=== PATIENT | male | born 1960 | race African-American/Black ===

== ENCOUNTER 2017-08-12 11:57 | Observation (INO) | payer BC, OTHER ==
[2017-08-12] MEDS ORDERED: chlorproMAZINE HCL 25 MG/1 ML AMP IM ONE ×2 (13:03→16:48)
--- NOTE | 2017-08-12 13:05 | PDOC ---
History of Present Illness - General History Source: Patient Exam Limitations: No Limitations - History of Present Illness Initial Comments: 08/12/17 13:16 The patient is a 56 year old male with past medical history of hypertension who presents to the ED with three days of hiccups. The patient states his hiccups have persisted despite all his efforts to stop them. He reports going to Urgent Care earlier today for his symptoms where he got an EKG done which was normal but he was sent to the ED for further evaluation and blood work. The patient denies any abdominal pain, nausea, vomiting, or diarrhea. He denies any chest pain, palpitations, diaphoresis or shortness of breath. He denies any fevers or chills. <Jackie Calles - Last Filed: 08/12/17 15:49> <Mona Louise - Last Filed: 08/12/17 19:03> - General Chief Complaint: Pain Stated Complaint: HIC CUPS Time Seen by Provider: 08/12/17 12:51 Past History <Jackie Calles - Last Filed: 08/12/17 15:49> - Past Medical History Anemia: No Asthma: No Cancer: No Cardiac Disorders: No CVA: No COPD: No CHF: No Dementia: No Diabetes: No GI Disorders: No Disorders: No HTN: Yes Hypercholesterolemia: No Liver Disease: No Seizures: No Thyroid Disease: No - Surgical History Abdominal Surgery: No Appendectomy: Yes Cardiac Surgery: No Cholecystectomy: No Lung Surgery: No Neurologic Surgery: No Orthopedic Surgery: Yes (RIGHT KNEE ARTHROSCOPY X 2) - Immunization History Immunization Up to Date: No - Suicide/Smoking/Psychosocial Hx Smoking History: Current some day smoker Have you smoked in the past 12 months: Yes Number of Cigarettes Smoked Daily: 0 If you are a former smoker, when did you quit?: 1 Cigars Per Day: 1 Information on smoking cessation initiated: No Hx Alcohol Use: No Drug/Substance Use Hx: No Substance Use Type: None Hx Substance Use Treatment: No <Mona Louise - Last Filed: 08/12/17 19:03> - Past Medical History Allergies/Adverse Reactions: Allergies Allergy/AdvReac Type Severity Reaction Status Date / Time Penicillins Allergy Severe Hives Verified 08/12/17 12:03 Home Medications: Ambulatory Orders Amlodipine Besylate [Norvasc -] 10 mg PO DAILY 03/07/16 Review of Systems - Review of Systems Able to Perform ROS?: Yes Comments:: 08/12/17 13:16 GENERAL/CONSTITUTIONAL: No fever or chills. No weakness. HEAD, EYES, EARS, NOSE AND THROAT: No change in vision. No ear pain or discharge. No sore throat. CARDIOVASCULAR: No chest pain or shortness of breath. RESPIRATORY: No cough, wheezing, or hemoptysis. GASTROINTESTINAL: Present: hiccups No nausea, vomiting, diarrhea or constipation. GENITOURINARY: No dysuria, frequency, or change in urination. MUSCULOSKELETAL: No joint or muscle swelling or pain. No neck or back pain. SKIN: No rash NEUROLOGIC: No headache, vertigo, loss of consciousness, or change in strength/ sensation. ENDOCRINE: No increased thirst. No abnormal weight change. HEMATOLOGIC/LYMPHATIC: No anemia, easy bleeding, or history of blood clots. ALLERGIC/IMMUNOLOGIC: No hives or skin allergy. All Other Systems: Reviewed and Negative <[email or web address] - Last Filed: 08/12/17 15:49> *Physical Exam - Vital Signs Last Vital Signs Temp Pulse Resp BP Pulse Ox 98.5 F 74 18 148/85 98 08/12/17 12:03 08/12/17 12:03 08/12/17 12:03 08/12/17 12:03 08/12/17 12:03 <Jackie Calles - Last Filed: 08/12/17 15:49> - Vital Signs Last Vital Signs Temp Pulse Resp BP Pulse Ox 98.5 F 74 18 148/85 98 08/12/17 12:03 08/12/17 12:03 08/12/17 12:03 08/12/17 12:03 08/12/17 12:03 - Physical Exam Comments: GENERAL: Awake, alert, and fully oriented, in no acute distress. Intermittently with hiccups. HEAD: No signs of trauma EYES: PERRLA, EOMI, sclera anicteric, conjunctiva clear ENT: Auricles normal inspection, hearing grossly normal, nares patent, oropharynx clear without exudates. Moist mucosa NECK: Normal ROM, supple, no lymphadenopathy, JVD, or masses LUNGS: Breath sounds equal, clear to auscultation bilaterally. No wheezes, and no crackles HEART: Regular rate and rhythm, normal S1 and S2, no murmurs, rubs or gallops ABDOMEN: Soft, nontender, normoactive bowel sounds. No guarding, no rebound. No masses EXTREMITIES: Normal range of motion, no edema. No clubbing or cyanosis. No cords, erythema, or tenderness NEUROLOGICAL: Cranial nerves II through XII grossly intact. Normal speech, normal gait SKIN: Warm, Dry, normal turgor, no rashes or lesions noted. <Mona Louise - Last Filed: 08/12/17 19:03> ED Treatment Course - LABORATORY CBC & Chemistry Diagram: 08/12/17 13:45 08/12/17 13:45 <Jackie Calles - Last Filed: 08/12/17 15:49> - LABORATORY CBC & Chemistry Diagram: 08/12/17 13:45 08/12/17 13:45 <Mona Louise - Last Filed: 08/12/17 19:03> Medical Decision Making - Medical Decision Making 08/12/17 15:49 Non-contrast Abdominal CT scan as reviewed by Dr. Gupta reports unremarkable pancreas. Small simple cyst on left renal upper pole and large simple cyst in the right renal lower pole. Diverticulosis coli without evidence of acute diverticulitis. <Jackie Calles - Last Filed: 08/12/17 15:49> - Medical Decision Making 08/12/17 15:43 Called to bedside, patient was in holding area, stood up and suddenly felt weak , fell and hit his head. +LOC. HE appears pale at present. DDx includes poss orthostatic hypotension from thorazine, vasovagal syncope, ACS. 08/12/17 16:50 Reassessed patient. We discussed what happened earlier, and now he states that he did not eat anything since yesterday 7pm. His just brought him a sandwich and he appears a bit better. Orthostatics show stable BP, with an increase in HR with standing. Will plan for second CE at 6 hrs, IV fluids. He is having hiccups again, will give second dose of thorazine. 08/12/17 19:02 Pt endorsed to incoming physician. Awaiting repeat CE. If wnl, DC home. <Mona Louise - Last Filed: 08/12/17 19:03> *DC/Admit/Observation/Transfer - Attestations Scribe Attestion: 08/12/17 13:17 Documentation prepared by Jackie Calles, acting as medical assembly for Mona Louise MD. <Jackie Calles - Last Filed: 08/12/17 15:49> <Mona Louise - Last Filed: 08/12/17 19:03> Diagnosis at time of Disposition: Hiccup Syncope Qualifiers: Syncope type: unspecified Qualified Code(s): R55 - Syncope and collapse
[2017-08-12 13:56] LABS: BASO % 0.9 % (0-2.0); EOS % 0.9 % (0-4.5); HEMATOCRIT 44.9 % (35.4-49); HEMOGLOBIN 14.4 GM/dL (11.7-16.9); LYMPH % 21.9 % (8-40); MCH 26.3 pg (25.7-33.7); MEAN CELL VOLUME 82.3 fl (80-96); MONO % 9.8 % (3.8-10.2); NEUT % 66.5 % (42.8-82.8); PLATELET COUNT 211 K/MM3 (134-434); RBC 5.46 M/mm3 (4.00-5.60); RDW 15.5 % (11.9-15.9); WHITE BLOOD COUNT 5.1 K/mm3 (4.0-10.0)
[2017-08-12 14:09] LABS: INR 1.1 (0.82-1.09); PROTHROMBIN TIME (PATIENT) 12.4 SEC (9.98-11.88)
[2017-08-12 14:20] LABS: ALBUMIN 3.9 g/dl (3.4-5.0); ANION GAP 8 (8-16); BILIRUBIN,TOTAL 0.5 mg/dL (0.2-1.0); BLOOD UREA NITROGEN 16 mg/dL (7-18); CALCIUM 9.1 mg/dL (8.5-10.1); CHLORIDE 104 mmol/L (98-107); CO2 29 mmol/L (21-32); CREATININE 2.1 mg/dL (0.7-1.3); GLUCOSE,RANDOM 77 mg/dL (74-106); LIPASE 120 U/L (73-393); POTASSIUM 4.1 mmol/L (3.5-5.1); SGOT/AST 21 U/L (15-37); SGPT/ALT 30 U/L (12-78); SODIUM 141 mmol/L (136-145); TOT PROT 7.7 g/dl (6.4-8.2)
[2017-08-12 14:23] LABS: ALK PHOS 114 U/L (45-117)
[2017-08-12] MEDS ORDERED: SODIUM CHLORIDE 1,000 ML IV STA ×2 (15:34→16:31)
[2017-08-12] MEDS: LACTATED RINGERS SOLUTION 1,000 ML/1,000 ML INFUS.BAG IV SCH (17:00)
[2017-08-12] MEDS ORDERED: LACTATED RINGERS SOLUTION 1000 ML INFUS.BAG IV ONE (19:45)
--- NOTE | 2017-08-12 19:54 | PDOC ---
*Physical Exam - Vital Signs Last Vital Signs Temp Pulse Resp BP Pulse Ox 98.5 F 80 17 149/92 98 08/12/17 19:35 08/12/17 19:35 08/12/17 19:35 08/12/17 19:35 08/12/17 19:35 ED Treatment Course - LABORATORY CBC & Chemistry Diagram: 08/12/17 13:45 08/12/17 13:45 - ADDITIONAL ORDERS Additional order review: Laboratory Results 08/12/17 08/12/17 08/12/17 19:00 15:50 13:45 WBC RBC Hgb Hct MCV MCH MCHC RDW Plt Count MPV Neutrophils % Lymphocytes % Monocytes % Eosinophils % Basophils % PT with INR INR Sodium 141 Potassium 4.1 Chloride 104 Carbon Dioxide 29 Anion Gap 8 BUN 16 Creatinine 2.1 H Creat Clearance w eGFR 32.95 POC Glucometer 93.63938 Random Glucose 77 Calcium 9.1 Total Bilirubin 0.5 AST 21 ALT 30 Alkaline Phosphatase 114 Creatine Kinase 775 H 392 H Creatine Kinase Index 0.5 0.4 CK-MB (CK-2) 4.242 H 1.902 Troponin I 0.02 < 0.02 Total Protein 7.7 Albumin 3.9 Lipase 120 08/12/17 08/12/17 13:45 13:45 WBC 5.1 RBC 5.46 Hgb 14.4 Hct 44.9 MCV 82.3 MCH 26.3 MCHC 32.0 RDW 15.5 Plt Count 211 MPV 8.0 Neutrophils % 66.5 Lymphocytes % 21.9 Monocytes % 9.8 Eosinophils % 0.9 Basophils % 0.9 PT with INR 12.40 H INR 1.10 Sodium Potassium Chloride Carbon Dioxide Anion Gap BUN Creatinine Creat Clearance w eGFR POC Glucometer Random Glucose Calcium Total Bilirubin AST ALT Alkaline Phosphatase Creatine Kinase Creatine Kinase Index CK-MB (CK-2) Troponin I Total Protein Albumin Lipase 08/12/17 08/12/17 15:50 13:45 RBC 5.46 MCV 82.3 MCHC 32.0 RDW 15.5 MPV 8.0 Neutrophils % 66.5 Lymphocytes % 21.9 Monocytes % 9.8 Eosinophils % 0.9 Basophils % 0.9 POC Glucometer 93.23537 - RADIOLOGY Radiology Studies Ordered: Category Date Time Status CHEST PA & LAT [RAD] Stat Radiology 08/12/17 19:42 Ordered - Medications Given in the ED: ED Medications Discontinued Medications Generic Name Dose Route Start Last Admin Trade Name Jose PRN Reason Stop Dose Admin Chlorpromazine HCl 25 mg 08/12/17 13:03 08/12/17 14:21 Thorazine Injection - IM 08/12/17 13:04 25 mg ONCE ONE Administration Chlorpromazine HCl 25 mg 08/12/17 16:48 08/12/17 17:26 Thorazine Injection - IM 08/12/17 16:49 25 mg ONCE ONE Administration Sodium Chloride 1,000 mls @ 1,000 mls/hr 08/12/17 15:34 08/12/17 15:59 Normal Saline - IV 08/12/17 16:33 1,000 mls/hr ASDIR STA Administration Sodium Chloride 1,000 mls @ 1,000 mls/hr 08/12/17 16:31 08/12/17 16:40 Normal Saline - IV 08/12/17 17:30 1,000 mls/hr ASDIR STA Administration Lactated Ringer's 1,000 ml 08/12/17 19:45 08/12/17 19:50 Lactated Ringers Solution IV 08/12/17 19:46 1,000 ml NOW ONE Administration Medical Decision Making - Medical Decision Making 08/12/17 19:56 Pt was signed out to me. He is here for intractable hiccups. EKGs and CT abd pelvis normal. Labs normal. Pt had a syncopal episode in the ER prior to my arrival, apparently pt has had nothing to eat since yesterday. His second CPK is elevated 339 to 700s. Trop is negative however. Pt will be admitted to tele observation to the hospitalist, as he has no PMD in this system 08/12/17 21:44 Pt's hiccups returned and the baclofen first dose hasn't helped. Pt is getting reglan IVPB currently. *DC/Admit/Observation/Transfer Diagnosis at time of Disposition: Hiccup, Elevation of cardiac enzymes Syncope Qualifiers: Syncope type: unspecified Qualified Code(s): R55 - Syncope and collapse - Discharge Dispostion Condition at time of disposition: Guarded Admit: Yes - Referrals - Patient Instructions - Post Discharge Activity
[2017-08-12] MEDS ORDERED: METOCLOPRAMIDE HCL INJECTION 10 MG/2 ML VIAL IVPUSH ONE (20:55)
[2017-08-12] MEDS ORDERED: BACLOFEN 10 MG TABLET (FP) PO ONE (20:55)
[2017-08-12] MEDS ORDERED: MAG HYDROX/AL HYDROX/SIMETH 30 ML UNIT-DOSE CUP PO ONE (20:56)
[2017-08-12] MEDS ORDERED: MAG HYDROX/AL HYDROX/SIMETH 30 ML UNIT-DOSE CUP ONE (21:05)
[2017-08-12] MEDS ORDERED: METOCLOPRAMIDE HCL INJECTION 10 MG/2 ML VIAL ONE (21:05)
[2017-08-12] MEDS ORDERED: BACLOFEN 10 MG TABLET (FP) ONE (21:05)
--- NOTE | 2017-08-12 21:58 | PN ---
Teaching Attending Note Name of Resident: Angeles Gaona ATTENDING PHYSICIAN STATEMENT I saw and evaluated the patient. I reviewed the resident's note and discussed the case with the resident. I agree with the resident's findings and plan as documented. SUBJECTIVE: 56 M wo presented with hiccups, who lost concioussness in ED after standing up and hit his head. States he had decreased Po intake. No chest pain or pressure. initially had positive orthostatics. Was given Thorazine in ED. States he hiccups have now abated and denies any chest pain or pressure. Denies any shortness of breath. Pmhx: HTN, R. Knee arthoscopy X2 OBJECTIVE: Physical: VS: Vital Signs Period Temp Pulse Resp BP Sys/Stokes Pulse Ox Last 24 Hr 98.2 F-98.5 F 54-88 17-20 114-149/70-92 98-99 GEN: NAD, resting in bed, AA0X3 HEENT: NCAT, PERRL, throat without erythema or exudates CARD: RRR S1, S2 RESP: CTAB ABD: BSx4, NTD to palpation EXT: - C/C/E CBCD WBC 5.1 K/mm3 (4.0-10.0) 08/12/17 13:45 RBC 5.46 M/mm3 (4.00-5.60) 08/12/17 13:45 Hgb 14.4 GM/dL (11.7-16.9) 08/12/17 13:45 Hct 44.9 % (35.4-49) 08/12/17 13:45 MCV 82.3 fl (80-96) 08/12/17 13:45 MCHC 32.0 g/dl (32.0-35.9) 08/12/17 13:45 RDW 15.5 % (11.9-15.9) 08/12/17 13:45 Plt Count 211 K/MM3 (134-434) 08/12/17 13:45 MPV 8.0 fl (7.5-11.1) 08/12/17 13:45 CMP Sodium 141 mmol/L (136-145) 08/12/17 13:45 Potassium 4.1 mmol/L (3.5-5.1) 08/12/17 13:45 Chloride 104 mmol/L (98-107) 08/12/17 13:45 Carbon Dioxide 29 mmol/L (21-32) 08/12/17 13:45 Anion Gap 8 (8-16) 08/12/17 13:45 BUN 16 mg/dL (7-18) 08/12/17 13:45 Creatinine 2.1 mg/dL (0.7-1.3) H 08/12/17 13:45 Creat Clearance w eGFR 32.95 (>60) 08/12/17 13:45 Random Glucose 77 mg/dL (74-106) 08/12/17 13:45 Calcium 9.1 mg/dL (8.5-10.1) 08/12/17 13:45 Total Bilirubin 0.5 mg/dL (0.2-1.0) 08/12/17 13:45 AST 21 U/L (15-37) 08/12/17 13:45 ALT 30 U/L (12-78) 08/12/17 13:45 Alkaline Phosphatase 114 U/L (45-117) 08/12/17 13:45 Total Protein 7.7 g/dl (6.4-8.2) 08/12/17 13:45 Albumin 3.9 g/dl (3.4-5.0) 08/12/17 13:45 CARDIAC ENZYMES Creatine Kinase 775 IU/L (39-308) H 08/12/17 19:00 Troponin I 0.02 ng/ml (0.00-0.05) 08/12/17 19:00 EKG: NSR CXR: No Acute Process ASSESSMENT AND PLAN: 56 M with pmhx of HTN who presents with hiccups, found to have syncopized in ED 1.) Syncope - Vasovagl vs. Cardiogenic - CT HEAD wo con - IVF - Echo/Carotid - Trend Trop/EKG 2.) Hiccups - S/P Thorazine 3.) HTN - Hold meds 4.) Dvt Ppx - SCDs Place in Obs-Tele
--- NOTE | 2017-08-12 23:07 | HP ---
CHIEF COMPLAINT: intractable hiccups PCP: Dr. Jeremiah Joel (PCP & GI) HISTORY OF PRESENT ILLNESS: Pt is a 56 y/o M w/ PMH HTN who presents to ED with intractable hiccups for 3 days. Pt states he has had this once years ago and remembers he had endoscopy done at that time, but cannot recall the findings. He was in his usual state of health until Fri when he began having hiccups. They have been persistent and continue at this time. Pt denies any CP, difficulty swallowing, SOB, PANG, abd pain, nausea, vomiting, diarrhea, fever, chills. In ED, pt had unwitnessed syncople episode. Pt denies aura, loss of bowel/ bladder dysfunction, hist seizure disorder. He states he stood up and was leaning on his bed when suddenly he found himself on the ground. He has not fainted before. ER course was notable for: (1) labs remarkable for Ferr[employer] Wheel [employer] 2.1 (2.0 prior), CK 775, CK-MB 4.2 (<4% of CK), Tn neg (2) CXR labelled as reverse but otherwise unremarkable, CTAP unremarkable (3) Recent Travel: denies PAST MEDICAL HISTORY: HTN PAST SURGICAL HISTORY: Social History: Smoking: Cigar ever 3 d Alcohol: 2 beers/d Drugs: denies Family History: denies Allergies Penicillins Allergy (Severe, Verified 08/12/17 12:03) Hives HOME MEDICATIONS: Home Medications Medication Instructions Recorded Amlodipine Besylate [Norvasc -] 10 mg PO DAILY 03/07/16 REVIEW OF SYSTEMS CONSTITUTIONAL: Absent: fever, chills, diaphoresis, HEENT: Absent: rhinorrhea, nasal congestion, throat pain, throat swelling, difficulty swallowing, CARDIOVASCULAR: Absent: chest pain, syncope, palpitations, lightheadedness, peripheral edema RESPIRATORY: Absent: cough, shortness of breath, dyspnea with exertion, orthopnea, GASTROINTESTINAL: Absent: abdominal pain, abdominal distension, nausea, vomiting, diarrhea, GENITOURINARY: Absent: dysuria, frequency, urgency, hematuria, flank pain, genital pain MUSCULOSKELETAL: Absent: myalgia, arthralgia, joint swelling, back pain, neck pain SKIN: Absent: rash, itching, pallor HEMATOLOGIC/IMMUNOLOGIC: Absent: easy bleeding, easy bruising, lymphadenopathy, frequent infections ENDOCRINE: Absent: unexplained weight gain, unexplained weight loss, heat intolerance, cold intolerance NEUROLOGIC: Absent: headache, focal weakness or paresthesias, dizziness, unsteady gait, seizure, mental status changes, bladder or bowel incontinence PSYCHIATRIC: Absent: anxiety, depression, suicidal or homicidal ideation, hallucinations. PHYSICAL EXAMINATION Vital Signs - 24 hr 08/12/17 08/12/17 08/12/17 12:03 15:59 16:41 Temperature 98.5 F 98.2 F Pulse Rate 74 Pulse Rate [ 67 54 L Right Radial] Respiratory 18 18 20 Rate Blood Pressure 148/85 Blood Pressure 143/89 [Left Arm] Blood Pressure 137/78 [Right Arm] O2 Sat by Pulse 98 98 98 Oximetry (%) 08/12/17 08/12/17 08/12/17 16:42 16:43 19:35 Temperature 98.5 F Pulse Rate Pulse Rate [ 68 88 80 Right Radial] Respiratory 20 18 17 Rate Blood Pressure Blood Pressure [Left Arm] Blood Pressure 114/70 134/90 149/92 [Right Arm] O2 Sat by Pulse 98 99 98 Oximetry (%) GENERAL: Awake, alert, and fully oriented, in no acute distress. HEAD: Normal with no signs of trauma. EYES: Pupils equal, round and reactive to light, extraocular movements intact, sclera anicteric, conjunctiva clear. No lid lag. EARS, NOSE, THROAT:oropharynx clear without exudates. Moist mucous membranes. NECK: Normal range of motion, supple without lymphadenopathy, JVD, or masses. LUNGS: Breath sounds equal, clear to auscultation bilaterally. No wheezes, and no crackles. No accessory muscle use. HEART: Regular rate and rhythm, normal S1 and S2 without murmur, rub or gallop. ABDOMEN: Soft, nontender, not distended, normoactive bowel sounds, no guarding, no rebound, no masses. No hepatomegaly or splenomegaly. MUSCULOSKELETAL: Normal range of motion at all joints. No bony deformities or tenderness. No CVA tenderness. UPPER EXTREMITIES: 2+ pulses, warm, well-perfused. No cyanosis. No clubbing. No peripheral edema. LOWER EXTREMITIES: 2+ pulses, warm, well-perfused. No calf tenderness. No peripheral edema. NEUROLOGICAL: Cranial nerves II-XII intact. Normal speech. PSYCHIATRIC: Cooperative. Good eye contact. Appropriate mood and affect. SKIN: Warm, dry, normal turgor, no rashes or lesions noted, normal capillary refill. Laboratory Results - last 24 hr 08/12/17 08/12/17 08/12/17 13:45 13:45 13:45 WBC 5.1 RBC 5.46 Hgb 14.4 Hct 44.9 MCV 82.3 MCH 26.3 MCHC 32.0 RDW 15.5 Plt Count 211 MPV 8.0 Neutrophils % 66.5 Lymphocytes % 21.9 Monocytes % 9.8 Eosinophils % 0.9 Basophils % 0.9 PT with INR 12.40 H INR 1.10 Sodium 141 Potassium 4.1 Chloride 104 Carbon Dioxide 29 Anion Gap 8 BUN 16 Creatinine 2.1 H Creat Clearance w eGFR 32.95 POC Glucometer Random Glucose 77 Calcium 9.1 Total Bilirubin 0.5 AST 21 ALT 30 Alkaline Phosphatase 114 Creatine Kinase 392 H Creatine Kinase Index 0.4 CK-MB (CK-2) 1.902 Troponin I < 0.02 Total Protein 7.7 Albumin 3.9 Lipase 120 08/12/17 08/12/17 15:50 19:00 WBC RBC Hgb Hct MCV MCH MCHC RDW Plt Count MPV Neutrophils % Lymphocytes % Monocytes % Eosinophils % Basophils % PT with INR INR Sodium Potassium Chloride Carbon Dioxide Anion Gap BUN Creatinine Creat Clearance w eGFR POC Glucometer 93.94749 Random Glucose Calcium Total Bilirubin AST ALT Alkaline Phosphatase Creatine Kinase 775 H Creatine Kinase Index 0.5 CK-MB (CK-2) 4.242 H Troponin I 0.02 Total Protein Albumin Lipase ASSESSMENT/PLAN: Pt is a 56 y/o M w/ PMH HTN who presented with intractable hiccups and had a syncople episode in ED. #hiccups -pt received reglan in ED -vagal maneuvers #syncope -orthostatics -head CT #HTN -c/w norvasc #FEN -Not on fluids -lytes wnl -Na control diet #PPx -Hep SubQ #Dispo -Tele/Obs Michael Mejia MD PGY-1 IM Visit type - Emergency Visit Emergency Visit: Yes Care time: The patient presented to the Emergency Department on the above date and was hospitalized for further evaluation of their emergent condition. - New Patient This patient is new to me today: Yes Date on this admission: 08/12/17 - Critical Care Critical Care patient: No
[2017-08-12] MEDS: HEPARIN NA (PORCINE) 5,000 UNITS/ML 1ML VIAL SQ SCH (23:40)
[2017-08-13] MEDS ORDERED: HEPARIN NA (PORCINE) 5,000 UNITS/ML 1ML VIAL ONE (00:26)
[2017-08-13] MEDS: HEPARIN NA (PORCINE) 5,000 UNITS/ML 1ML VIAL SQ SCH ×2 (06:38→14:30)
[2017-08-13 08:14] LABS: BASO % 0.4 % (0-2.0); EOS % 1.1 % (0-4.5); HEMATOCRIT 41.7 % (35.4-49); HEMOGLOBIN 13.3 GM/dL (11.7-16.9); LYMPH % 16.9 % (8-40); MCH 26.3 pg (25.7-33.7); MCHC 31.8 g/dl (32.0-35.9); MEAN CELL VOLUME 82.6 fl (80-96); MEAN PLT VOLUME 8.5 fl (7.5-11.1); MONO % 8.9 % (3.8-10.2); NEUT % 72.7 % (42.8-82.8); PLATELET COUNT 184 K/MM3 (134-434); RBC 5.05 M/mm3 (4.00-5.60); RDW 15.1 % (11.9-15.9); WHITE BLOOD COUNT 5.8 K/mm3 (4.0-10.0)
[2017-08-13 08:21] LABS: CALCIUM 8.3 mg/dL (8.5-10.1); CHLORIDE 106 mmol/L (98-107); POTASSIUM 3.7 mmol/L (3.5-5.1); SODIUM 142 mmol/L (136-145)
[2017-08-13 08:27] LABS: ALBUMIN 3.5 g/dl (3.4-5.0); ALK PHOS 100 U/L (45-117); ANION GAP 11 (8-16); BILIRUBIN,TOTAL 0.6 mg/dL (0.2-1.0); BLOOD UREA NITROGEN 15 mg/dL (7-18); CO2 25 mmol/L (21-32); CREATININE 1.8 mg/dL (0.7-1.3); GLUCOSE,RANDOM 74 mg/dL (74-106); PHOSPHOROUS 2.9 mg/dL (2.5-4.9); SGOT/AST 21 U/L (15-37); SGPT/ALT 24 U/L (12-78); TOT PROT 6.7 g/dl (6.4-8.2)
[2017-08-13] MEDS ORDERED: amLODIPine BESYLATE 10 MG TABLET (FP) PO SCH (10:00)
--- NOTE | 2017-08-13 12:50 | EKG ---
Test Reason : Blood Pressure : / mmHG Vent. Rate : 058 BPM Atrial Rate : 058 BPM P-R Int : 150 ms QRS Dur : 074 ms QT Int : 400 ms P-R-T Axes : 004 018 -08 degrees QTc Int : 392 ms SINUS BRADYCARDIA OTHERWISE NORMAL ECG WHEN COMPARED WITH ECG OF 12-AUG-2017 13:33, NO SIGNIFICANT CHANGE WAS FOUND Confirmed by MARCELL BARNES MD ([id number]) on 08/13/2017 12:50:08 PM Referred By: Confirmed By:MARCELL BARNES MD
--- NOTE | 2017-08-13 12:51 | EKG ---
Test Reason : Blood Pressure : / mmHG Vent. Rate : 059 BPM Atrial Rate : 059 BPM P-R Int : 158 ms QRS Dur : 074 ms QT Int : 396 ms P-R-T Axes : 057 013 012 degrees QTc Int : 392 ms SINUS BRADYCARDIA OTHERWISE NORMAL ECG WHEN COMPARED WITH ECG OF 24-APR-2016 07:17, NO SIGNIFICANT CHANGE WAS FOUND Confirmed by MARCELL BARNES MD ([id number]) on 08/13/2017 12:51:29 PM Referred By: Confirmed By:MARCELL BARNES MD
--- NOTE | 2017-08-13 13:25 | PN ---
<Yariel Patrick - Last Filed: 08/13/17 13:31> Physical Exam: SUBJECTIVE: Patient seen and examined at bedside. States that his hiccups have resolved. No acute issues. OBJECTIVE: Vital Signs Period Temp Pulse Resp BP Sys/Stokes Pulse Ox Last 24 Hr 98.2 F-98.9 F 54-93 17-20 114-167/70-97 98-99 GENERAL: Awake, alert, and fully oriented, in no acute distress. HEAD: Normal with no signs of trauma. EYES: Pupils equal, round and reactive to light, extraocular movements intact, sclera anicteric, conjunctiva clear. No lid lag. EARS, NOSE, THROAT:oropharynx clear without exudates. Moist mucous membranes. NECK: Normal range of motion, supple without lymphadenopathy, JVD, or masses. LUNGS: Breath sounds equal, clear to auscultation bilaterally. No wheezes, and no crackles. No accessory muscle use. HEART: Regular rate and rhythm, normal S1 and S2 without murmur, rub or gallop. NEUROLOGICAL: No focal deficits Laboratory Results - last 24 hr 08/12/17 08/12/17 08/12/17 13:45 13:45 13:45 WBC 5.1 RBC 5.46 Hgb 14.4 Hct 44.9 MCV 82.3 MCH 26.3 MCHC 32.0 RDW 15.5 Plt Count 211 MPV 8.0 Neutrophils % 66.5 Lymphocytes % 21.9 Monocytes % 9.8 Eosinophils % 0.9 Basophils % 0.9 PT with INR 12.40 H INR 1.10 Sodium 141 Potassium 4.1 Chloride 104 Carbon Dioxide 29 Anion Gap 8 BUN 16 Creatinine 2.1 H Creat Clearance w eGFR 32.95 POC Glucometer Random Glucose 77 Calcium 9.1 Phosphorus Magnesium Total Bilirubin 0.5 AST 21 ALT 30 Alkaline Phosphatase 114 Creatine Kinase 392 H Creatine Kinase Index 0.4 CK-MB (CK-2) 1.902 Troponin I < 0.02 Total Protein 7.7 Albumin 3.9 Lipase 120 08/12/17 08/12/17 08/13/17 15:50 19:00 07:24 WBC 5.8 RBC 5.05 Hgb 13.3 Hct 41.7 MCV 82.6 MCH 26.3 MCHC 31.8 L RDW 15.1 Plt Count 184 MPV 8.5 Neutrophils % 72.7 Lymphocytes % 16.9 D Monocytes % 8.9 Eosinophils % 1.1 Basophils % 0.4 PT with INR INR Sodium Potassium Chloride Carbon Dioxide Anion Gap BUN Creatinine Creat Clearance w eGFR POC Glucometer 93.72273 Random Glucose Calcium Phosphorus Magnesium Total Bilirubin AST ALT Alkaline Phosphatase Creatine Kinase 775 H Creatine Kinase Index 0.5 CK-MB (CK-2) 4.242 H Troponin I 0.02 Total Protein Albumin Lipase 08/13/17 08/13/17 07:24 07:24 WBC RBC Hgb Hct MCV MCH MCHC RDW Plt Count MPV Neutrophils % Lymphocytes % Monocytes % Eosinophils % Basophils % PT with INR INR Sodium 142 Potassium 3.7 Chloride 106 Carbon Dioxide 25 Anion Gap 11 BUN 15 Creatinine 1.8 H Creat Clearance w eGFR 39.37 POC Glucometer Random Glucose 74 Calcium 8.3 L Phosphorus 2.9 Magnesium 2.0 Total Bilirubin 0.6 AST 21 ALT 24 Alkaline Phosphatase 100 Creatine Kinase Creatine Kinase Index CK-MB (CK-2) Troponin I 0.04 D Cancelled Total Protein 6.7 Albumin 3.5 Lipase Active Medications Generic Name Dose Route Start Last Admin Trade Name Freq PRN Reason Stop Dose Admin Amlodipine Besylate 10 mg 08/13/17 10:00 08/13/17 09:47 Norvasc - PO 10 mg DAILY JENNIFER Administration Heparin Sodium (Porcine) 5,000 unit 08/12/17 22:45 08/13/17 06:38 Heparin - SQ 5,000 unit TID JENNIFER Administration Lactated Ringer's 1,000 ml in 1,000 mls @ 125 mls/hr 08/12/17 17:00 08/12/17 17:00 Lactated Ringers Solution IV 125 mls/hr ASDIR JENNIFER Administration ASSESSMENT/PLAN: Pt is a 56 year old male with history of hypertension is admitted for intractable hiccups and syncopal episode in ED #Intractable Hiccups: resolved -no further workup #Syncopal Episode: no acute events -orthostatics negative - patient hypertensive -head CT negative -f/u carotid doppler -f/u echo #Hypertension -continue Norvasc 10mg QD #FEN -No standing fluids -Check lytes in Am -Na control diet #Prophylaxis -Hep 5000 SubQ TID #Disposition -continue to monitor on tele/obs Visit type - Emergency Visit Emergency Visit: Yes ED Registration Date: 08/12/17 Care time: The patient presented to the Emergency Department on the above date and was hospitalized for further evaluation of their emergent condition. - New Patient This patient is new to me today: Yes Date on this admission: 08/13/17 - Critical Care Critical Care patient: No <Lisa Lutz - Last Filed: 08/13/17 19:26> Physical Exam: Patient seen and examined , will check his BP , and if controlled post Labetolol will discharge him with Labetolol and will recheck his Kidney function is improving or not. If no improvement will restart IVF 1/2 NS at 100cc /hr. # Acute renal failure , will repeat the level # HTN given a dose of Labetolol will continue if bp improves and if kidney function improves will continue his ARB recheck his CPK level
[2017-08-13 13:58] VITALS: BMI 33.3
[2017-08-13 16:46] VITALS: TEMP 98.4
[2017-08-13 16:47] VITALS: BP 171/8; PULSE 88
[2017-08-13] MEDS ORDERED: LABETALOL HCL 200 MG TABLET (FP) PO ONE (17:00)
[2017-08-13] MEDS ORDERED: LABETALOL HCL 100 MG TABLET (FP) ONE (17:14)
[2017-08-13] MEDS: LACTATED RINGERS SOLUTION 1,000 ML/1,000 ML INFUS.BAG IV SCH (17:15)
[2017-08-13 20:14] LABS: ANION GAP 7 (8-16); BLOOD UREA NITROGEN 17 mg/dL (7-18); CALCIUM 8.5 mg/dL (8.5-10.1); CHLORIDE 104 mmol/L (98-107); CO2 28 mmol/L (21-32); CREATININE 1.8 mg/dL (0.7-1.3); GLUCOSE,RANDOM 124 mg/dL (74-106); POTASSIUM 3.7 mmol/L (3.5-5.1); SODIUM 139 mmol/L (136-145)
--- NOTE | 2017-08-14 07:49 | DS ---
Physical Exam: SUBJECTIVE: Patient seen and examined OBJECTIVE: Vital Signs Period Temp Pulse Resp BP Sys/Stokes Pulse Ox Last 24 Hr 98.4 F-98.9 F 68-93 18-20 148-180/8-98 98 PHYSICAL EXAM GENERAL: The patient is awake, alert, and fully oriented, in no acute distress. HEAD: Normal with no signs of trauma. EYES: PERRL, extraocular movements intact, sclera anicteric, conjunctiva clear. ENT: Ears normal, nares patent, oropharynx clear without exudates, moist mucous membranes. NECK: Trachea midline, full range of motion, supple. LUNGS: Breath sounds equal, clear to auscultation bilaterally, no wheezes, no crackles, no accessory muscle use. HEART: Regular rate and rhythm, S1, S2 without murmur, rub or gallop. ABDOMEN: Soft, nontender, nondistended, normoactive bowel sounds, no guarding, no rebound, no hepatosplenomegaly, no masses. EXTREMITIES: 2+ pulses, warm, well-perfused, no edema. NEUROLOGICAL: Cranial nerves II through XII grossly intact. Normal speech, gait not observed. PSYCH: Normal mood, normal affect. SKIN: Warm, dry, normal turgor, no rashes or lesions noted. LABS Laboratory Results - last 24 hr 08/13/17 08/13/17 08/13/17 07:24 07:24 07:24 WBC 5.8 RBC 5.05 Hgb 13.3 Hct 41.7 MCV 82.6 MCH 26.3 MCHC 31.8 L RDW 15.1 Plt Count 184 MPV 8.5 Neutrophils % 72.7 Lymphocytes % 16.9 D Monocytes % 8.9 Eosinophils % 1.1 Basophils % 0.4 Sodium 142 Potassium 3.7 Chloride 106 Carbon Dioxide 25 Anion Gap 11 BUN 15 Creatinine 1.8 H Creat Clearance w eGFR 39.37 Random Glucose 74 Calcium 8.3 L Phosphorus 2.9 Magnesium 2.0 Total Bilirubin 0.6 AST 21 ALT 24 Alkaline Phosphatase 100 Creatine Kinase Creatine Kinase Index CK-MB (CK-2) Troponin I 0.04 D Cancelled Total Protein 6.7 Albumin 3.5 08/13/17 08/13/17 19:40 19:40 WBC RBC Hgb Hct MCV MCH MCHC RDW Plt Count MPV Neutrophils % Lymphocytes % Monocytes % Eosinophils % Basophils % Sodium 139 Potassium 3.7 Chloride 104 Carbon Dioxide 28 Anion Gap 7 L BUN 17 Creatinine 1.8 H Creat Clearance w eGFR Random Glucose 124 H D Calcium 8.5 Phosphorus Magnesium Total Bilirubin AST ALT Alkaline Phosphatase Creatine Kinase 585 H Creatine Kinase Index 0.2 CK-MB (CK-2) 1.522 Troponin I 0.03 Total Protein Albumin HOSPITAL COURSE: Date of Admission:08/12/17 Pt is a 56 year old male with history of hypertension is admitted for intractable hiccups and syncopal episode in ED. Patient's hiccups ended while in the hospital. Patient had a syncopal episode while on the hospital bed. CT head negative, carotid dopplers were negative for stenosis and echocardiogram returned negative. Patient had an elevated BUN/Cre likely chronic due to previous visit and was hypertensive on admission, which improved after we gave him his home medications. Patient decided to leave AMA last night. Risks of leaving were discussed with the patient and he agreed. He left AMA on 08/14/17. Date of Discharge: 08/14/17 Minutes to complete discharge: 35 Discharge Summary Reason For Visit: ELEVATED CARDIAC ENZYMES/SYNCOPE/HICCUPS Condition: Improved - Instructions Diet, Activity, Other Instructions: You were admitted to the hospital for the treatment of chronic hiccups and syncopal episode. Medical recommendations: -Please continue to take amlodipine 10mg once a day for blood pressure as well as your other home medications. Make an appointment with your primary care physician within 1 week of discharge If your symptoms return, please call your doctor. If you experience chest pain, shortness of breath, severe nausea/vomiting, or loss of consciousness, weakness, please come to the emergency room immediately. Disposition: AGAINST MEDICAL ADVICE - Home Medications Comprehensive Discharge Medication List: Ambulatory Orders Amlodipine Besylate [Norvasc -] 10 mg PO DAILY 03/07/16 Valsartan/Hydrochlorothiazide [Valsartan-Hctz 160-12.5 mg Tab] 1 each PO DAILY 08/13/17 This patient is new to me today: No Emergency Visit: No Critical Care patient: No - Discharge Referral Referred to [facility] Med P.C.: No
== END 2017-08-13 20:00 | disposition left against medical advice (07) ==
LOC: JER 11:57 → UNDOADMOB 21:57 → INTOOBSV 21:57 → JERBED 21:57
PROVIDERS: ADMIT Internal Medicine; ATTEND Internal Medicine
PROC: 3E033GC Introduction of Other Therapeutic Substance into Peripheral Vein, Percutaneous Approach (ICD-10-PCS; principal; 2017-08-12)
PROC: 3E0337Z Introduction of Electrolytic and Water Balance Substance into Peripheral Vein, Percutaneous Approach (ICD-10-PCS; 2017-08-12)
PROC: 3E013GC Introduction of Other Therapeutic Substance into Subcutaneous Tissue, Percutaneous Approach (ICD-10-PCS; 2017-08-12)
DX: R06.6 Hiccough (principal); R55 Syncope and collapse; I10 Essential (primary) hypertension; F17.210 Nicotine dependence, cigarettes, uncomplicated; Z88.0 Allergy status to penicillin; R74.8 Abnormal levels of other serum enzymes
CPT/HCPCS: 36415; 70450-TC; 71046-TC-FY; 74176-TC; 80048; 80053; 82550; 82553; 82962; 83690; 83735; 84100; 84484; 85025; 85610; 93005; 93010; 93306-TC; 93880-TC; 99285-25; G0378; J0475; J1644

== ENCOUNTER 2017-08-16 05:51 | Inpatient (IN) | payer BC, OTHER ==
[2017-08-16] MEDS ORDERED: SODIUM CHLORIDE 500 ML IV STA (07:32)
[2017-08-16] MEDS ORDERED: chlorproMAZINE HCL 25 MG/1 ML AMP IM ONE ×2 (07:36→23:45)
--- NOTE | 2017-08-16 07:49 | PDOC ---
History of Present Illness - General Chief Complaint: Pain Stated Complaint: SPASM/HICCUPS Time Seen by Provider: 08/16/17 07:27 - History of Present Illness Initial Comments: Mr Joiner is a 56yo M with a PMHx of HTN who comes to the ER for persistent hiccups. The hiccups have now worsened, and he is having multiple rapid-fire short burst hiccups which now lead to insomnia. He was recently seen in the ER 4 days ago for a similar issue, and no cause for the hiccups was identified. He was given chlorpromazine with successful resolution of hiccups for a couple of hours. However, patient had a subsequent syncopal episode because he was on an empty stomach. He was observed in the hospital and worked up for the syncopal episode with subsequent negative CT head, carotid dopplers, and echocardiogram. He left against medical advice because he felt as though he was not receiving appropriate care. He then followed up with Dr Sorensen, who prescribed him Reglan and scheduled him for an upper endoscopy for tomorrow (08/17). He denies symptoms of reflux. He denies CP, SOB, Abd pain, fevers, chills. Past History - Past Medical History Allergies/Adverse Reactions: Allergies Allergy/AdvReac Type Severity Reaction Status Date / Time Penicillins Allergy Severe Hives Verified 08/16/17 06:10 Home Medications: Ambulatory Orders Amlodipine Besylate [Norvasc -] 10 mg PO DAILY 03/07/16 Valsartan/Hydrochlorothiazide [Valsartan-Hctz 160-12.5 mg Tab] 1 each PO DAILY 08/13/17 Anemia: No Asthma: No Cancer: No Cardiac Disorders: No CVA: No COPD: No CHF: No Dementia: No Diabetes: No GI Disorders: No Disorders: No HTN: Yes Hypercholesterolemia: No Liver Disease: No Seizures: No Thyroid Disease: No - Surgical History Abdominal Surgery: No Appendectomy: Yes Cardiac Surgery: No Cholecystectomy: No Lung Surgery: No Neurologic Surgery: No Orthopedic Surgery: Yes (RIGHT KNEE ARTHROSCOPY X 2) - Immunization History Immunization Up to Date: No - Suicide/Smoking/Psychosocial Hx Smoking History: Never smoked Have you smoked in the past 12 months: No Number of Cigarettes Smoked Daily: 0 If you are a former smoker, when did you quit?: 1 Cigars Per Day: 1 Information on smoking cessation initiated: No Hx Alcohol Use: No Drug/Substance Use Hx: No Substance Use Type: None Hx Substance Use Treatment: No Review of Systems - Review of Systems Constitutional: No: Chills, Diaphoresis, Fever HEENTM: No: Eye Pain, Blurred Vision, Tearing Respiratory: No: Cough, Orthopnea, Shortness of Breath Cardiac (ROS): No: Chest Pain, Edema, Irregular Heart Rate ABD/GI: No: Abdominal Distended, Constipated, Diarrhea, Nausea : No: Burning, Dysuria, Discharge, Frequency Musculoskeletal: No: Back Pain, Gout, Joint Pain Integumentary: No: Bruising, Change in Color Neurological: No: Headache, Numbness, Paresthesia Psychiatric: No: Anxiety, Depression, Frequent Crying Endocrine: No: Excessive Sweating, Flushing, Intolerance to Cold Hematologic/Lymphatic: No: Anemia, Blood Clots, Easy Bleeding *Physical Exam - Vital Signs Last Vital Signs Temp Pulse Resp BP Pulse Ox 98.3 F 90 14 166/86 98 08/16/17 06:14 08/16/17 06:14 08/16/17 06:14 08/16/17 06:14 08/16/17 06:14 - Physical Exam Comments: GEN: AAOx3, NAD, Lying comfortably, but actively hiccuping with rapid-fire hiccups HEENT: PERRLA, EOMi CV: S1, S2, RRR LUNG: CTABL ABD: Soft, NT, ND, normoactive BS MSK: NO edema, no erythema NEURO: CN 2-12 intact ED Treatment Course - LABORATORY CBC & Chemistry Diagram: 08/18/17 08:30 08/18/17 08:30 Medical Decision Making - Medical Decision Making 56yo M with a PMHx of HTN who was recently admitted for intractable hiccups, now presents with recurrent and worsening hiccups. Tried valsalva maneuvers, drinking water, breath holding spells without relief. Only thing that has worked was Chlorpromazine which was given in ER before. Will ensure hydration before chlorpromazine injection w/ 500mL bolus. He was already seen by Dr Sorensen (GI), endoscopy set for tmrw. Has prescribed PO reglan already. -- IVNS 500cc bolus -- IM Chlorpromazine 25mg -- Will call Dr Soresnen 08/16/17 10:30 Dr Sorensen returned call. Will send resident to evaluate. 08/16/17 12:45 Patient re-examined, not hiccuping. Dr Cuellar and Dr Schaefer evaluated the patient at bedside. Along with Dr Sorensen, they agree with observation and UGI scope tomorrow Microblog sent to [facility]. *DC/Admit/Observation/Transfer Diagnosis at time of Disposition: Intractable hiccups - Discharge Dispostion Admit: Yes - Referrals - Patient Instructions - Post Discharge Activity
[2017-08-16] MEDS ORDERED: chlorproMAZINE HCL 25 MG/1 ML AMP ONE (07:57)
--- NOTE | 2017-08-16 08:36 | PDOC ---
Attending Attestation - Resident Resident Name: JoselinStevenson - ED Attending Attestation I have performed the following: I have examined & evaluated the patient, The case was reviewed & discussed with the resident, I agree w/resident's findings & plan, Exceptions are as noted - HPI HPI: 08/16/17 08:34 The patient is a 56 year old male with a significant PMH of hypertension who presents to the emergency department with intractable hiccups. The patient states his hiccups are worsening as they are becoming more frequent and making it difficult for him to sleep prompting his visit to the ER today. The patient was seen at our facility four days ago and given chloropromaxine which resolved his hiccups for a few hours but had a syncopal episode during his ER visit because he was sitting up when it was adminstered and he hadn't eaten. He was admitted and had an echo and CTAP which were not revealing as cases for his syncope. The patient reports he followed up with GI, Dr. Sorensen, and was told to return for an endoscopy tomorrow. The patient has no other complaints today. No tx tried. The patient denies reflux, abdominal pain, chest pain, shortness of breath, headache and dizziness. Denies fever, chills, nausea, vomit, diarrhea and constipation. Denies dysuria, frequency, urgency and hematuria. Allergies: NKA Past surgical history: None reported. Social history: No reported alcohol, drug, or cigarette use. - Physicial Exam PE: 08/16/17 08:35 GENERAL: Awake, alert, and fully oriented, in no acute distress. Frequent hiccups HEAD: No signs of trauma EYES: PERRLA, EOMI, sclera anicteric, conjunctiva clear ENT: Auricles normal inspection, hearing grossly normal, nares patent, oropharynx clear without exudates. Moist mucosa NECK: Normal ROM, supple, no lymphadenopathy, JVD, or masses LUNGS: Breath sounds equal, clear to auscultation bilaterally. No wheezes, and no crackles HEART: Regular rate and rhythm, normal S1 and S2, no murmurs, rubs or gallops ABDOMEN: Soft, nontender, normoactive bowel sounds. No guarding, no rebound. No masses EXTREMITIES: Normal range of motion, no edema. No clubbing or cyanosis. No cords, erythema, or tenderness BACK: No midline spinal tenderness in cervical/thoracic/lumbar region NEUROLOGICAL: Normal speech, cranial nerves intact, negative pronator drift, 5/ 5 strength in all 4 extremities, normal sensation to light touch in all 4 extremities, normal cerebellar exam, normal gait, normal reflexes and tone SKIN: Warm, Dry, normal turgor, no rashes or lesions noted. - Medical Decision Making 08/16/17 08:35 56-year-old male with a recent workup for hiccups/syncope presents with worsening hiccups. Patient scheduled for endoscopy tomorrow for GI workup. Will give chlorpromazine, fluids to treat symptoms, discuss with his GI doctor and reassess. 08/16/17 13:07 Patient feels much better status post chlorpromazine and has spent most of the last 3 hours resting with out hiccups. Patient was evaluated by gastroenterology who recommends admission to observation should hiccups recur and for endoscopy in the morning. Hospitalist has been micro-blogged, we are awaiting a call back. 08/16/17 14:22 Patient has been signed out to resident Óscar. Case discussed in detail with admitting physician Dr. Denson including history, physical exam and ancillary studies. Admitting physician has assumed care for the patient, will follow all pending diagnostics and will complete the evaluation and treatment.
--- NOTE | 2017-08-16 10:12 | CONSULT ---
Consultation: REQUESTING PROVIDER: CONSULT REQUEST: We have been asked to medically evaluate this patient for Hiccoughs. HISTORY OF PRESENT ILLNESS: 56 yo M presents to ER for with persistent hiccoughs. His hiccups started on 08/10 and he proceeded to come to [facility] ER. He was given an injection of chlorpromazine which resolved hiccups ,but subsequently suffered syncopal episode. He was then worked up for syncope with ECHO, head CT and carotid duplex which were negative and eventually signed out AMA. He then was seen in office by Dr. Sorensen and was given a script for Reglan which he was unable to fill because of insurance issues. His hiccoughs are triggered by eating but he denies vomiting. No history of GERD. Denies abdominal pain and has had regular bowel movement. Denies any recent change in medications, recent illness, constipation, or rectal bleeding. He endorses some recent weight gain due to poor diet. No family history of colon, rectal or gastric cancers. He had similar episodes in past that he states was resolved by EGD. He mentions that EGD at that time was unremarkable and colonoscopy around the same time was normal according to him. Denies CP, BENSON, fever, palpitations, abdominal pain, N/ V. PMHx: HTN , DJD, CKD(stage 3b), gout PSHx: right knee makoplasty, appendectomy. Social: smokes an occasional cigar, drinks 2 beers daily , no drugs, works as teacher. FHx: Mother(HTN) REVIEW OF SYSTEMS: CONSTITUTIONAL: +weight change, Fatigue Absent: fever, chills, diaphoresis, generalized weakness, malaise, loss of appetite, HEENT: Absent: rhinorrhea, nasal congestion, throat pain, throat swelling, difficulty swallowing, mouth swelling, ear pain, eye pain, visual changes CARDIOVASCULAR: Absent: chest pain, syncope, palpitations, irregular heart rate, lightheadedness , peripheral edema RESPIRATORY: Absent: cough, shortness of breath, dyspnea with exertion, orthopnea, wheezing, stridor, hemoptysis GASTROINTESTINAL: Absent: abdominal pain, abdominal distension, nausea, vomiting, diarrhea, constipation, melena, hematochezia GENITOURINARY: Absent: dysuria, frequency, urgency, hesitancy, hematuria, flank pain, genital pain MUSCULOSKELETAL: Absent: myalgia, arthralgia, joint swelling, back pain, neck pain SKIN: Absent: rash, itching, pallor HEMATOLOGIC/IMMUNOLOGIC: Absent: easy bleeding, easy bruising, lymphadenopathy, frequent infections ENDOCRINE: Absent: unexplained weight gain, unexplained weight loss, heat intolerance, cold intolerance NEUROLOGIC: Absent: headache, focal weakness or paresthesias, dizziness, unsteady gait, seizure, mental status changes, bladder or bowel incontinence PSYCHIATRIC: Absent: anxiety, depression, suicidal or homicidal ideation, hallucinations. PHYSICAL EXAMINATION Vital Signs - 24 hr 08/16/17 10:30 Temperature 98.3 F Pulse Rate 86 Respiratory 14 Rate Blood Pressure 137/93 O2 Sat by Pulse 98 Oximetry (%) GENERAL: AAOx3, NAD HEAD: NC/AT EYES:PERRLA,EOMI, sclera anicteric, conjunctiva clear. No lid lag. EARS, NOSE, THROAT: oropharynx clear without exudates. Moist mucous membranes. NECK: Supple, NL ROM, no JVD, no masses LUNGS: CTAB, No wheezing or rales. HEART: RRR, NL S1S2, NO M/G/R ABDOMEN: Soft, NT/ND,NL BS, no guarding, no rebound, no masses. MUSCULOSKELETAL: NL ROM, No deformities, No CVA tenderness. LOWER EXTREMITIES: 2+ pulses, warm, well-perfused. No calf tenderness. No peripheral edema. NEUROLOGICAL: Cranial nerves II-XII intact. Normal speech. No focal deficits. PSYCHIATRIC: Cooperative. Good eye contact. Appropriate mood and affect. SKIN: Warm, dry, normal turgor, no rashes or lesions noted. ASSESSMENT: 56 yo M with persistent singultus. * Good response with Chlorpromazine IV * Possible 2/2 gastric process such as outlet obstruction from ucler, gastroparesis or hiatal hernia. * CXR,chemistries, neuro exam and ENT exam all WNL. PLAN: * Will schedule for EGD with biopsy. * Continue Chlorpromazine IV 50mg TID * NPO for EGD. Dispo: We will continue to follow the patient. Thank you for this consultative opportunity. Problem List - Problems (1) Hiccup (2) HTN (hypertension) Visit type - Emergency Visit Emergency Visit: Yes ED Registration Date: 08/16/17 Care time: The patient presented to the Emergency Department on the above date and was hospitalized for further evaluation of their emergent condition. - New Patient This patient is new to me today: Yes Date on this admission: 08/20/17 - Critical Care Critical Care patient: No
--- NOTE | 2017-08-16 13:40 | PN ---
Teaching Attending Note Name of Resident: Stanley Liz GI consult: Dr. Holder for Dr. Sorensen ATTENDING PHYSICIAN STATEMENT I saw and evaluated the patient. I reviewed the resident's note and discussed the case with the resident. I agree with the resident's findings and plan as documented. SUBJECTIVE: 56M w/ persistent hiccups, ? adverse reaction to chlorpromazine during previous ER visit this week Denies abdominal pain and currently resting comfortably s/p IV hydration and redosing of chlorpromazine OBJECTIVE: On exam: Anicteric Hrt: RRR. No murmurs Lungs: CTA b/l Abd: sft, NT/ND +BS no HSM Ext: No LE edema ASSESSMENT Persistent hiccups - Clinically improved s/p IV hydration w/ Thorazine PLAN: Clear liquids IV hydration PPI Patient already scheduled for EGD tomorrow w/ Dr. Sorensen. NPO after midnight AM labs
--- NOTE | 2017-08-16 14:41 | HP ---
CHIEF COMPLAINT: hiccups PCP: HISTORY OF PRESENT ILLNESS: 56 year old male with a hx of hypertension and CKD presents to the ED for intractable hiccups. He was admitted to observation several days ago for hiccups , for which he was given chlorpromazine and improved nearly immediately. He had a syncopal episode on his previous admission in the ED and was worked up with Echo(negative), carotid doppler (negative). Patient was discharged previously with instructions to see Dr. Sorensen. Dr. Sorensen prescribed him reglan, which he was unable to obtain due to insurance issues. Patient now returns after 1 day of severe hiccups which he describes as "rapid fire" and continuous last night. He states that eating makes them worse, and that the previous chlorpromazine made it better. Denies any chest pain, shortness of breath, nausea, vomiting, diarrhea, fevers, chills, melena, hematochezia, abdominal pain. ER course was notable for: (1) hiccups (2) chlorpromazine given (3) Recent Travel: none PAST MEDICAL HISTORY: HTN, PAST SURGICAL HISTORY: unknown Social History: Smoking: cigars every couple of days Alcohol: 1-2 beers a night Drugs: none Family History: Allergies Penicillins Allergy (Severe, Verified 08/16/17 06:10) Hives HOME MEDICATIONS: Home Medications Medication Instructions Recorded Amlodipine Besylate [Norvasc -] 10 mg PO DAILY 03/07/16 Valsartan/Hydrochlorothiazide 1 each PO DAILY 08/13/17 [Valsartan-Hctz 160-12.5 mg Tab] REVIEW OF SYSTEMS CONSTITUTIONAL: Absent: fever, chills, diaphoresis, generalized weakness, malaise, loss of appetite, weight change HEENT: Absent: rhinorrhea, nasal congestion, throat pain, throat swelling, difficulty swallowing, mouth swelling, ear pain, eye pain, visual changes CARDIOVASCULAR: Absent: chest pain, syncope, palpitations, irregular heart rate, lightheadedness , peripheral edema RESPIRATORY: Absent: cough, shortness of breath, dyspnea with exertion, orthopnea, wheezing, stridor, hemoptysis GASTROINTESTINAL: hiccups, abdominal distension Absent: abdominal pain, nausea, vomiting, diarrhea, constipation, melena, hematochezia GENITOURINARY: Absent: dysuria, frequency, urgency, hesitancy, hematuria, flank pain, genital pain MUSCULOSKELETAL: Absent: myalgia, arthralgia, joint swelling, back pain, neck pain SKIN: Absent: rash, itching, pallor HEMATOLOGIC/IMMUNOLOGIC: Absent: easy bleeding, easy bruising, lymphadenopathy, frequent infections ENDOCRINE: Absent: unexplained weight gain, unexplained weight loss, heat intolerance, cold intolerance NEUROLOGIC: Absent: headache, focal weakness or paresthesias, dizziness, unsteady gait, seizure, mental status changes, bladder or bowel incontinence PSYCHIATRIC: Absent: anxiety, depression, suicidal or homicidal ideation, hallucinations. PHYSICAL EXAMINATION Vital Signs - 24 hr 08/16/17 08/16/17 06:14 11:28 Temperature 98.3 F 98 F Pulse Rate 90 Pulse Rate [ 63 Left Apical] Respiratory 14 13 Rate Blood Pressure 166/86 Blood Pressure 137/67 [Left] O2 Sat by Pulse 98 100 Oximetry (%) Home Medication List Medication Instructions Recorded Confirmed Type Amlodipine Besylate [Norvasc -] 10 mg PO DAILY 03/07/16 08/13/17 History Valsartan/Hydrochlorothiazide 1 each PO DAILY 08/13/17 08/13/17 History [Valsartan-Hctz 160-12.5 mg Tab] GENERAL: Awake, alert, and fully oriented, in no acute distress. HEAD: Normal with no signs of trauma. EYES: Pupils equal, round and reactive to light, extraocular movements intact, sclera anicteric, conjunctiva clear. No lid lag. LUNGS: Breath sounds equal, clear to auscultation bilaterally. No wheezes, and no crackles. No accessory muscle use. HEART: Regular rate and rhythm, normal S1 and S2 without murmur, rub or gallop. ABDOMEN: Distended, nontender, normoactive bowel sounds, no guarding, no rebound , no masses. No hepatomegaly or splenomegaly. MUSCULOSKELETAL: Normal range of motion at all joints. No bony deformities or tenderness. No CVA tenderness. UPPER EXTREMITIES: 2+ pulses, warm, well-perfused. No cyanosis. No clubbing. No peripheral edema. LOWER EXTREMITIES: 2+ pulses, warm, well-perfused. No calf tenderness. No peripheral edema. NEUROLOGICAL: Cranial nerves II-XII intact. Normal speech. Normal gait. PSYCHIATRIC: Cooperative. Good eye contact. Appropriate mood and affect. SKIN: Warm, dry, normal turgor, no rashes or lesions noted, normal capillary refill. ASSESSMENT/PLAN: 56 year old male with a history of HTN and questionable CKD is admitted to observation for intractable hiccups #Hiccups: currently not hiccuping -patient was given chlorpromazine in ED, which resolved his hiccups and they did not return -patient was see by GI an will get an EGD tomorrow -clear liquid diet and then NPO after midnight #Hypertension: BP stable at 137/67 -will confirm medications -restart home amlodipine -hold valsartan/HCTZ due to kidney function - repeat BMP and reassess #CKD: unknown if worsened currently -awaiting BMP to confirm #FEN: -no standing fluids -replete lytes as necessary -CLD, NPO after midnight #Prophylaxis -heparin 5000 subq TID #Disposition -admit to obs -scheduled for EGD tomorrow Visit type - Emergency Visit Emergency Visit: Yes ED Registration Date: 08/16/17 Care time: The patient presented to the Emergency Department on the above date and was hospitalized for further evaluation of their emergent condition. - New Patient This patient is new to me today: Yes Date on this admission: 08/16/17 - Critical Care Critical Care patient: No
[2017-08-16] MEDS ORDERED: amLODIPine BESYLATE 5 MG TABLET (FP) ONE (15:20)
[2017-08-16] MEDS ORDERED: HEPARIN NA (PORCINE) 5,000 UNITS/ML 1ML VIAL ONE (15:20)
[2017-08-16] MEDS: HEPARIN NA (PORCINE) 5,000 UNITS/ML 1ML VIAL SQ SCH (15:27)
[2017-08-16] MEDS: amLODIPine BESYLATE 10 MG TABLET (FP) PO SCH (15:27)
[2017-08-16 15:41] LABS: HEMOGLOBIN 13.3 GM/dL (11.7-16.9); MCH 26.9 pg (25.7-33.7); MCHC 32.5 g/dl (32.0-35.9); MEAN CELL VOLUME 82.7 fl (80-96); MEAN PLT VOLUME 8.2 fl (7.5-11.1); PLATELET COUNT 195 K/MM3 (134-434); RBC 4.95 M/mm3 (4.00-5.60); RDW 15.1 % (11.9-15.9); WHITE BLOOD COUNT 4.8 K/mm3 (4.0-10.0)
[2017-08-16 15:52] LABS: INR 1.08 (0.82-1.09); PROTHROMBIN TIME (PATIENT) 12.2 SEC (9.98-11.88)
[2017-08-16 16:25] LABS: ANION GAP 9 (8-16); BLOOD UREA NITROGEN 21 mg/dL (7-18); CALCIUM 8.3 mg/dL (8.5-10.1); CHLORIDE 104 mmol/L (98-107); CO2 26 mmol/L (21-32); CREATININE 1.9 mg/dL (0.7-1.3); GLUCOSE,RANDOM 77 mg/dL (74-106); POTASSIUM 3.8 mmol/L (3.5-5.1); SODIUM 139 mmol/L (136-145)
--- NOTE | 2017-08-16 17:19 | PN ---
Teaching Attending Note Name of Resident: Yariel Patrick ATTENDING PHYSICIAN STATEMENT I saw and evaluated the patient. I reviewed the resident's note and discussed the case with the resident. I agree with the resident's findings and plan as documented. SUBJECTIVE: CC: intractable Hiccups. HPI: 56 yr old gentleman with h/o HTN and CKD and recent admission for Hiccups who presented with continued Hiccups He was admitted on 08/12 for this , left AMA on 10/11 after resolution of his Hiccups. during that hospitalization, he had a CT of abd and pelvis which did not show any bowel obstruction. after he left , he continued with hiccups but got worse yesterday and last night . he saw Dr. Sorensen yesterday and was supposed to get out pt EGD tomorrow. he denies N/V/d, has no abd pain, has no fevers or chills. his hiccups are worse after meals . OBJECTIVE: NAD, AAox3. HEENT: Nc/AT. MM, no facial droop, EOMI, round equal pupils , reactive to light , no exudate on oropharynx. CV: RRR, no MRG , No JVD Lungs : CTAB skin: a scar over anterior chest wall Abd: slightly distended, NL BS , NT. No hepatomegaly but an area of thickness in RUQ skin was felt with dullness in that area. soft abd . Ext: no edema , or erythema , no signs of fungal infection among toes. neuro : EOMI, round equal pupils , reactive to light, no facial droop, tongue and uvula at mid line. strength 5/5 in upper and lower ext proximally and distally. sensation and reflexes and gait were not tested. ASSESSMENT AND PLAN: 56 yr old gentleman with h/o HTN and CKD and recent admission for Hiccups who presented with continued intractable Hiccups. 1- Intractable Hiccups: no clear etiology. abd is slightly distended but last CT scan did not show any obstruction. per international trade specialist who saw him last admission , abd is now more distended. ? hiatal hernia, ? ileus or SBO. - appreciate GI input - EGD tomorrow - clears today. 2- HTN: cont valsartanand Norvasc 3- CKD : Cr at base line. 4- DVT PX with heparin. hold after mid night
[2017-08-17] MEDS: HYDROCHLOROTHIAZIDE 12.5 MG CAPSULE (FP) PO SCH ×3 (00:42→11:09)
[2017-08-17] MEDS: HEPARIN NA (PORCINE) 5,000 UNITS/ML 1ML VIAL SQ SCH ×2 (00:42→06:26)
[2017-08-17] MEDS: VALSARTAN 160 MG TABLET (UD) PO SCH ×3 (00:42→11:09)
[2017-08-17 05:01] VITALS: BMI 33.1
[2017-08-17 08:12] LABS: BASO % 0.4 % (0-2.0); EOS % 0.4 % (0-4.5); HEMATOCRIT 42.8 % (35.4-49); HEMOGLOBIN 13.8 GM/dL (11.7-16.9); LYMPH % 10.4 % (8-40); MCH 26.6 pg (25.7-33.7); MCHC 32.3 g/dl (32.0-35.9); MEAN CELL VOLUME 82.4 fl (80-96); MEAN PLT VOLUME 8.6 fl (7.5-11.1); NEUT % 81.8 % (42.8-82.8); PLATELET COUNT 216 K/MM3 (134-434); RBC 5.19 M/mm3 (4.00-5.60); RDW 15.7 % (11.9-15.9)
[2017-08-17] MEDS: amLODIPine BESYLATE 10 MG TABLET (FP) PO SCH ×2 (08:25→11:09)
[2017-08-17 08:30] LABS: ALBUMIN 3.9 g/dl (3.4-5.0); ANION GAP 8 (8-16); BLOOD UREA NITROGEN 19 mg/dL (7-18); CALCIUM 8.7 mg/dL (8.5-10.1); CHLORIDE 103 mmol/L (98-107); CO2 25 mmol/L (21-32); CREATININE 1.8 mg/dL (0.7-1.3); GLUCOSE,RANDOM 82 mg/dL (74-106); POTASSIUM 3.8 mmol/L (3.5-5.1); SGOT/AST 32 U/L (15-37); SGPT/ALT 37 U/L (12-78); SODIUM 136 mmol/L (136-145)
[2017-08-17 08:33] LABS: ALK PHOS 103 U/L (45-117); BILIRUBIN,TOTAL 0.8 mg/dL (0.2-1.0); TOT PROT 7.3 g/dl (6.4-8.2)
[2017-08-17] MEDS ORDERED: PROPOFOL 20 ML ONE ×2 (10:52)
[2017-08-17] MEDS ORDERED: PANTOPRAZOLE SODIUM 80 MG in SODIUM CHLORIDE 100 ML IVPB SCH (13:15)
--- NOTE | 2017-08-17 13:17 | PN ---
Progress Note (short form) - Note Progress Note: GI Procedure NOte: Please see scaned EGD report. 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 This appears to be the focus of phrenic nerve irritation. Will institute PPI drip and antacids. He is at risk of creating a Stefanie Marshall tear. Will initiate deit. Antireflux instruction given as well as the need for healthier diet, exercise, alcohol avoidance and weight loss . Dr Holder will be covering this weekend.
[2017-08-17] MEDS: MAG HYDROX/AL HYDROX/SIMETH 30 ML UNIT-DOSE CUP PO SCH ×3 (13:41→23:50)
--- NOTE | 2017-08-17 14:51 | PN ---
Teaching Attending Note Name of Resident: Yariel Patrick ATTENDING PHYSICIAN STATEMENT I saw and evaluated the patient. I reviewed the resident's note and discussed the case with the resident. I agree with the resident's findings and plan as documented. SUBJECTIVE: no fever or chills, Hiccups returned after food but improved after then. EGD done . OBJECTIVE: NAD, AAox3. MMM CV: RRR, no MRG , No JVD Lungs : CTAB skin: a scar over anterior chest wall Abd: slightly distended, but soft, NL BS , NT. No hepatomegaly but an area of thickness in RUQ skin was felt with dullness in that area. Ext: no edema , or erythema ASSESSMENT AND PLAN: 56 yr old gentleman with h/o HTN and CKD and recent admission for Hiccups who presented with continued intractable Hiccups. 1- Intractable Hiccups: improved . EGD with hiatal hernia and associated ulcer. - Appreciate GI input - PPI gtt - resume regular diet - KUB reviewed. 2- HTN: cont valsartan/HCTZ and Norvasc 3- CKD : Cr at base line. 4- DVT PX use SCDs , due to the ulcer . hold heparin products :
[2017-08-17] MEDS: PANTOPRAZOLE SODIUM 160 MG in DEXTROSE 5%-WATER - 290 ML IVPB SCH (15:13)
--- NOTE | 2017-08-17 15:33 | PN ---
Physical Exam: SUBJECTIVE: Patient seen and examined at bedside. Patient is awaiting EGD. He is hiccuping at bedside frequently. Denies chest pain, SOB, nausea, vomiting, diarrhea, abdominal pain. OBJECTIVE: Vital Signs Period Temp Pulse Resp BP Sys/Stokes Pulse Ox Last 24 Hr 97.7 F-99.3 F 65-105 18-20 105-192/59-96 94-99 GENERAL: Awake, alert, and fully oriented, in no acute distress. LUNGS: Breath sounds equal, clear to auscultation bilaterally. No wheezes, and no crackles. No accessory muscle use. HEART: Regular rate and rhythm, normal S1 and S2 without murmur, rub or gallop. ABDOMEN: Distended, nontender, patient is actively hiccupping normoactive bowel sounds, no guarding, no rebound, no masses. No hepatomegaly or splenomegaly. MUSCULOSKELETAL: Normal range of motion at all joints. No bony deformities or tenderness. No CVA tenderness. PSYCHIATRIC: Cooperative. Good eye contact. Appropriate mood and affect. SKIN: Warm, dry, normal turgor, no rashes or lesions noted, normal capillary refill. Laboratory Results - last 24 hr 08/16/17 08/16/17 08/16/17 15:22 15:22 15:22 WBC 4.8 RBC 4.95 Hgb 13.3 Hct 41.0 MCV 82.7 MCH 26.9 MCHC 32.5 RDW 15.1 Plt Count 195 MPV 8.2 Neutrophils % Lymphocytes % Monocytes % Eosinophils % Basophils % PT with INR 12.20 H INR 1.08 Sodium 139 Potassium 3.8 Chloride 104 Carbon Dioxide 26 Anion Gap 9 BUN 21 H D Creatinine 1.9 H Creat Clearance w eGFR Random Glucose 77 D Calcium 8.3 L Total Bilirubin AST ALT Alkaline Phosphatase Total Protein Albumin Blood Type Antibody Screen 08/16/17 08/17/17 08/17/17 15:22 06:30 06:30 WBC 7.0 D RBC 5.19 Hgb 13.8 Hct 42.8 MCV 82.4 MCH 26.6 MCHC 32.3 RDW 15.7 Plt Count 216 MPV 8.6 Neutrophils % 81.8 Lymphocytes % 10.4 D Monocytes % 7.0 Eosinophils % 0.4 Basophils % 0.4 PT with INR INR Sodium 136 Potassium 3.8 Chloride 103 Carbon Dioxide 25 Anion Gap 8 BUN 19 H Creatinine 1.8 H Creat Clearance w eGFR 39.23 Random Glucose 82 Calcium 8.7 Total Bilirubin 0.8 D AST 32 D ALT 37 D Alkaline Phosphatase 103 Total Protein 7.3 Albumin 3.9 Blood Type O POSITIVE Antibody Screen Negative Active Medications Generic Name Dose Route Start Last Admin Trade Name Jose PRN Reason Stop Dose Admin Al Hydroxide/Mg Hydroxide 30 ml 08/17/17 13:15 08/17/17 13:41 Mylanta Oral Suspension - PO 30 ml Q6HPO JENNIFER Administration Amlodipine Besylate 10 mg 08/16/17 15:15 08/17/17 11:09 Norvasc - PO Not Given DAILY JENNIFER Hydrochlorothiazide 12.5 mg 08/16/17 17:15 08/17/17 11:09 Hctz - PO Not Given DAILY JENNIFER Pantoprazole Sodium 160 mg/ 290 mls @ 14.5 mls/hr 08/17/17 13:30 08/17/17 15: 13 Dextrose IVPB 14.5 mls/hr Q20H JENNIFER Administration Valsartan 160 mg 08/16/17 17:15 08/17/17 11:09 Diovan - PO Not Given DAILY JENNIFER CBC, BMP 08/17/17 06:30 08/17/17 06:30 ASSESSMENT/PLAN: 56 year old male with a history of HTN and questionable CKD is admitted to observation for intractable hiccups #Hiccups: 2/2 ulcer at GE junction/GERD/hiatal hernia - patient at risk for sujit pérez tear -s/p EGD with Dr. 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 This appears to be the focus of phrenic nerve irritation. -PPI drip, diet, weight loss #Hypertension: BP stable -continue valsartan/HCTZ #CKD: unknown if worsened currently -awaiting BMP to confirm #FEN: -no standing fluids -replete lytes as necessary -regular diet #Prophylaxis -heparin 5000 subq TID #Disposition -continue to monitor overnight Visit type - Emergency Visit Emergency Visit: No - New Patient This patient is new to me today: No - Critical Care Critical Care patient: No
[2017-08-17] MEDS ORDERED: chlorproMAZINE HCL 25 MG/1 ML AMP IM ONE (20:00)
[2017-08-18] MEDS: MAG HYDROX/AL HYDROX/SIMETH 30 ML UNIT-DOSE CUP PO SCH ×4 (06:30→23:11)
[2017-08-18 09:02] LABS: HEMATOCRIT 40.7 % (35.4-49); MCH 26.3 pg (25.7-33.7); MCHC 32.1 g/dl (32.0-35.9); MEAN CELL VOLUME 81.9 fl (80-96); MEAN PLT VOLUME 8.3 fl (7.5-11.1); PLATELET COUNT 214 K/MM3 (134-434); RBC 4.96 M/mm3 (4.00-5.60); RDW 15.4 % (11.9-15.9); WHITE BLOOD COUNT 5.9 K/mm3 (4.0-10.0)
[2017-08-18 09:14] LABS: ALBUMIN 3.5 g/dl (3.4-5.0); ANION GAP 9 (8-16); BLOOD UREA NITROGEN 22 mg/dL (7-18); CALCIUM 8.5 mg/dL (8.5-10.1); CHLORIDE 101 mmol/L (98-107); CO2 26 mmol/L (21-32); CREATININE 2.2 mg/dL (0.7-1.3); GLUCOSE,RANDOM 87 mg/dL (74-106); POTASSIUM 3.7 mmol/L (3.5-5.1); SODIUM 136 mmol/L (136-145)
[2017-08-18] MEDS: PANTOPRAZOLE SODIUM 160 MG in DEXTROSE 5%-WATER - 290 ML IVPB SCH (09:49)
[2017-08-18] MEDS: HYDROCHLOROTHIAZIDE 12.5 MG CAPSULE (FP) PO SCH (09:49)
[2017-08-18] MEDS: VALSARTAN 160 MG TABLET (UD) PO SCH (09:49)
[2017-08-18] MEDS: amLODIPine BESYLATE 10 MG TABLET (FP) PO SCH (09:49)
--- NOTE | 2017-08-18 13:33 | PN ---
GI Progress Note Subjective: GI: Dr. Holder covering for Dr. Sorensen Hiccups resumed last night, resolved this morning after breakfast per MrAnjali Joiner No abdominal pain - Objective Vital Signs: Vital Signs Temperature 98 F 08/18/17 10:00 Pulse Rate 96 H 08/18/17 10:00 Respiratory Rate 18 08/18/17 10:00 Blood Pressure 118/65 08/18/17 10:00 O2 Sat by Pulse Oximetry (%) 98 08/18/17 10:00 Constitutional: Calm Eyes: Yes: Sclera Icterus Cardiovascular: Yes: Regular Rate and Rhythm. No: Murmur Respiratory: Yes: CTA Bilaterally Gastrointestinal Inspection: No: Distention ...Auscultate: Yes: Normoactive Bowel Sounds ...Palpate: No: Hepatomegaly, Splenomegaly, Tenderness Edema: No (No LE edema) Neurological: Yes: Alert, Oriented Labs: CBC, BMP 08/18/17 08:30 08/18/17 08:30 INR, PTT INR 1.08 (0.82-1.09) 08/16/17 15:22 Problem List - Problems (1) Hiccup Assessment/Plan: Hiccups currently resolved. Will continue to monitor Continuing protonix 40mg once daily If hiccups resume, continued attempt at medical managament: ie. low dose chlorpromazine 25mg BID to TID for 2-3 days if tolerated or reglan 5mg PO TID for 2-3 days. Code(s): R06.6 - MALICK
--- NOTE | 2017-08-18 13:44 | PN ---
Teaching Attending Note Name of Resident: Blu Kunz ATTENDING PHYSICIAN STATEMENT I saw and evaluated the patient. I reviewed the resident's note and discussed the case with the resident. I agree with the resident's findings and plan as documented. SUBJECTIVE: No fever or chills, has no abd pain. hiccups returned last night , and resolved fater breakfast. OBJECTIVE: NAD, AAox3. MMM CV: RRR, no MRG , No JVD Lungs: CTAB skin: a scar over anterior chest wall Abd: soft, NL BS , NT. No hepatomegaly but an area of thickness in RUQ skin was felt with dullness in that area. Ext: no edema , or erythema ASSESSMENT AND PLAN: 56 yr old gentleman with h/o HTN and CKD and recent admission for Hiccups who presented with continued intractable Hiccups. 1- Intractable Hiccups: improved. EGD with hiatal hernia and associated ulcer. - Appreciate GI input - will d/w GI the duration of PPI gtt . hopefully can switch to p o - regular diet 2- HTN: cont valsartan/HCTZ and Norvasc 3- CKD : Cr at base line. 2.2 todya 4- DVT PX use SCDs , due to the ulcer . hold heparin products possible dc home today if can switch to po PPI
--- NOTE | 2017-08-18 16:10 | PN ---
Physical Exam: SUBJECTIVE: Patient seen and examined at bedside. Pt states he had relief of hiccups after thorazine last night until approximately 2 am when hiccups reoccurred. Hiccups went away after eating breakfast this morning and has not had hiccups since. No other events noted from overnight. Pt feels like hiccups are somewhat improved now. OBJECTIVE: Vital Signs Temperature 98.0 F 08/18/17 14:00 Pulse Rate 84 08/18/17 14:00 Respiratory Rate 18 08/18/17 14:00 Blood Pressure 132/75 08/18/17 14:00 O2 Sat by Pulse Oximetry (%) 98 08/18/17 10:00 GENERAL: The patient is awake, alert, and fully oriented, in no acute distress. HEAD: Normal with no signs of trauma. EYES: extraocular movements intact, sclera anicteric, conjunctiva clear. No ptosis. ENT: Ears normal, nares patent, moist mucous membranes. NECK: Trachea midline, full range of motion. LUNGS: Breath sounds equal, clear to auscultation bilaterally, no wheezes, no crackles, no accessory muscle use. HEART: Regular rate and rhythm, S1, S2 without murmur, rub or gallop. ABDOMEN: Soft, nontender, nondistended, normoactive bowel sounds, no guarding, no rebound, no hepatosplenomegaly, no masses. EXTREMITIES: warm, well-perfused, no edema. NEUROLOGICAL: Cranial nerves II through XII grossly intact. Normal speech, gait not observed. PSYCH: Normal mood, normal affect. SKIN: Warm, dry Laboratory Results - last 24 hr 08/18/17 08/18/17 08:30 08:30 WBC 5.9 RBC 4.96 Hgb 13.0 Hct 40.7 MCV 81.9 MCH 26.3 MCHC 32.1 RDW 15.4 Plt Count 214 MPV 8.3 Sodium 136 Potassium 3.7 Chloride 101 Carbon Dioxide 26 Anion Gap 9 BUN 22 H Creatinine 2.2 H D Random Glucose 87 Calcium 8.5 Albumin 3.5 Active Medications Generic Name Dose Route Start Last Admin Trade Name Freq PRN Reason Stop Dose Admin Al Hydroxide/Mg Hydroxide 30 ml 08/17/17 13:15 08/18/17 12:38 Mylanta Oral Suspension - PO 30 ml Q6HPO JENNIFER Administration Amlodipine Besylate 10 mg 08/16/17 15:15 02/10/18 09:49 Norvasc - PO 10 mg DAILY JENNIFER Administration Pantoprazole Sodium 40 mg 08/19/17 10:00 Protonix - PO DAILY JENNIFER Valsartan 160 mg 08/16/17 17:15 08/18/17 09:49 Diovan - PO 160 mg DAILY JENNIFER Administration ASSESSMENT/PLAN: 57 y/o M w/PMH HTN and CKD admitted for intractable hiccups, found to have ulcer at GE junction and hiatal hernia on EGD this admission. -Intractable hiccups -secondary to GE junction ulcer and hiatal hernia as seen on EGD this admission -PPI drip to be stopped and started on pantoprazole 40 mg po qd starting tomorrow -c/w mylanta 30 ml po q6h -as per GI: low dose chlorpromazine 25mg BID to TID for 2-3 days if tolerated or reglan 5mg PO TID for 2-3 days if hiccups resume. -HTN -c/w valsartan 160 mg po qd -CKD -Cr 2.2, continue to monitor, near baseline -DVT ppx -SCDs (no AC due to ulcer) -FEN -no fluids -monitor electrolytes -regular diet -Dispo: -monitor on m/s. If hiccups continue to improve may be able to discharge home tomorrow. Visit type - Emergency Visit Emergency Visit: Yes ED Registration Date: 08/16/17 Care time: The patient presented to the Emergency Department on the above date and was hospitalized for further evaluation of their emergent condition. - New Patient This patient is new to me today: Yes Date on this admission: 08/18/17 - Critical Care Critical Care patient: No
[2017-08-19] MEDS: MAG HYDROX/AL HYDROX/SIMETH 30 ML UNIT-DOSE CUP PO SCH ×3 (05:44→17:56)
[2017-08-19] MEDS: chlorproMAZINE HCL 25 MG TABLET PO SCH ×3 (05:44→17:56)
[2017-08-19] MEDS ORDERED: chlorproMAZINE HCL 25 MG TABLET PO SCH (06:00)
[2017-08-19 08:14] LABS: HEMATOCRIT 42.1 % (35.4-49); HEMOGLOBIN 13.9 GM/dL (11.7-16.9); MCH 26.9 pg (25.7-33.7); MCHC 33.1 g/dl (32.0-35.9); MEAN CELL VOLUME 81.2 fl (80-96); MEAN PLT VOLUME 8.2 fl (7.5-11.1); PLATELET COUNT 221 K/MM3 (134-434); RBC 5.18 M/mm3 (4.00-5.60); RDW 15.5 % (11.9-15.9); WHITE BLOOD COUNT 5.9 K/mm3 (4.0-10.0)
[2017-08-19 08:36] LABS: ALBUMIN 3.8 g/dl (3.4-5.0); ANION GAP 6 (8-16); BLOOD UREA NITROGEN 27 mg/dL (7-18); CALCIUM 8.7 mg/dL (8.5-10.1); CHLORIDE 99 mmol/L (98-107); CO2 30 mmol/L (21-32); GLUCOSE,RANDOM 91 mg/dL (74-106); POTASSIUM 3.8 mmol/L (3.5-5.1); SODIUM 135 mmol/L (136-145)
[2017-08-19 08:37] LABS: CREATININE 2.5 mg/dL (0.7-1.3)
[2017-08-19] MEDS: VALSARTAN 160 MG TABLET (UD) PO SCH (09:24)
[2017-08-19] MEDS: amLODIPine BESYLATE 10 MG TABLET (FP) PO SCH (09:24)
[2017-08-19] MEDS ORDERED: PANTOPRAZOLE 40 MG TABLET (FP) PO SCH (10:00)
--- NOTE | 2017-08-19 14:00 | PN ---
Progress Note (short form) - Note Progress Note: Subjective: no fever or chills . hiccups returned this am . Objective: Vital Signs: Last Vital Signs Temp Pulse Resp BP Pulse Ox 98.0 F 101 H 20 162/75 98 08/19/17 10:00 08/19/17 10:00 08/19/17 10:00 08/19/17 10:00 08/19/17 10:00 Laboratory Results - last 24 hr 08/19/17 08/19/17 06:50 06:50 WBC 5.9 RBC 5.18 Hgb 13.9 Hct 42.1 MCV 81.2 MCH 26.9 MCHC 33.1 RDW 15.5 Plt Count 221 MPV 8.2 Sodium 135 L Potassium 3.8 Chloride 99 Carbon Dioxide 30 Anion Gap 6 L BUN 27 H D Creatinine 2.5 H Random Glucose 91 Calcium 8.7 Albumin 3.8 Physical Exam: NAD, AAox3. MMM, hiccups CV: RRR, no MRG , No JVD Lungs: CTAB skin: a scar over anterior chest wall Abd: soft, NL BS , NT. No hepatomegaly but an area of thickness in RUQ skin was felt with dullness in that area. Ext: no edema , or erythema ASSESSMENT AND PLAN: 56 yr old gentleman with h/o HTN and CKD and recent admission for Hiccups who presented with continued intractable Hiccups. 1- Intractable Hiccups: returned . EGD with hiatal hernia and associated ulcer. - increase thiorazine to 50 TID - change PPI to H2 blockers due to AIDA 2- HTN: cont norvasc hold Losartan due to AIDA in mean time start hydralazine BID 3-AIDA on CKD: - ? prerenal azotemia. - HCTX held yesterday - hold ARB today - renal US - start gentle hydration 4- DVT PX use SCDs , due to the ulcer . hold heparin products case d/w Dr. Rousseau Visit type - Emergency Visit Emergency Visit: Yes ED Registration Date: 08/16/17 Care time: The patient presented to the Emergency Department on the above date and was hospitalized for further evaluation of their emergent condition. - New Patient This patient is new to me today: No - Critical Care Critical Care patient: No
--- NOTE | 2017-08-19 14:05 | PN ---
GI Progress Note Subjective: Hiccups resumed yesterday evening Received Thorazine 25mg last night and this morning without relief He feels that last night eating dinner may have helped alleviate them while today lunch may have precipitated them - Objective Vital Signs: Vital Signs Temperature 98.0 F 08/19/17 10:00 Pulse Rate 101 H 08/19/17 10:00 Respiratory Rate 20 08/19/17 10:00 Blood Pressure 162/75 08/19/17 10:00 O2 Sat by Pulse Oximetry (%) 98 08/19/17 10:00 Constitutional: Calm (active hiccups) Eyes: No: Sclera Icterus Cardiovascular: Yes: Regular Rate and Rhythm. No: Murmur Respiratory: Yes: CTA Bilaterally Gastrointestinal Inspection: No: Distention ...Auscultate: Yes: Normoactive Bowel Sounds ...Palpate: Yes: Soft. No: Hepatomegaly, Splenomegaly Edema: No Neurological: Yes: Alert, Oriented Labs: CBC, BMP 08/19/17 06:50 08/19/17 06:50 INR, PTT INR 1.08 (0.82-1.09) 08/16/17 15:22 Problem List - Problems (1) Hiccup Assessment/Plan: Persistant Hiccups: Escalated dose of Thorazine from 25 to 50mg TID Rising Cr. Changed PPI to Ranitidine 150mg PO BID Dr. Sorensen resumes coverage 08/20 Code(s): R06.6 - MALICK
[2017-08-19] MEDS: SODIUM CHLORIDE 1,000 ML IV SCH (15:24)
[2017-08-19] MEDS ORDERED: PT OWN MED DRAWER 7, Y5N ONE (17:52)
[2017-08-19] MEDS: hydrALAZINE HCL 25 MG TABLET (FP) PO SCH (21:28)
[2017-08-19] MEDS: RANITIDINE HCL 150 MG TABLET (FP) PO SCH (21:28)
[2017-08-20] MEDS: MAG HYDROX/AL HYDROX/SIMETH 30 ML UNIT-DOSE CUP PO SCH ×4 (00:09→17:50)
[2017-08-20] MEDS: chlorproMAZINE HCL 25 MG TABLET PO SCH ×3 (06:09→16:34)
[2017-08-20 08:19] LABS: ANION GAP 7 (8-16); BLOOD UREA NITROGEN 27 mg/dL (7-18); CALCIUM 8.4 mg/dL (8.5-10.1); CHLORIDE 101 mmol/L (98-107); CO2 29 mmol/L (21-32); CREATININE 2.5 mg/dL (0.7-1.3); GLUCOSE,RANDOM 85 mg/dL (74-106); POTASSIUM 3.9 mmol/L (3.5-5.1); SODIUM 137 mmol/L (136-145)
[2017-08-20] MEDS ORDERED: PT OWN MED DRAWER 7, Y5N ONE ×3 (09:47→16:32)
[2017-08-20] MEDS: hydrALAZINE HCL 25 MG TABLET (FP) PO SCH (09:49)
[2017-08-20] MEDS: amLODIPine BESYLATE 10 MG TABLET (FP) PO SCH (09:49)
[2017-08-20] MEDS: RANITIDINE HCL 150 MG TABLET (FP) PO SCH (09:49)
--- NOTE | 2017-08-20 10:34 | PN ---
GI Progress Note Subjective: GI NOte: Hiccups have resolved but renal function has not improved despite saline infusion. No hydronephrosis on sonogram. There are signs of chronic renal disease. Will start urine collection for creatinine clearance and consult renal. He has been able to tolerate dinner and breakfast. - Objective Vital Signs: Vital Signs Temperature 97.9 F 08/20/17 05:57 Pulse Rate 76 08/20/17 05:57 Respiratory Rate 20 08/20/17 05:57 Blood Pressure 124/65 08/20/17 05:57 O2 Sat by Pulse Oximetry (%) 99 08/19/17 21:00 Laboratory Tests 08/16/17 08/18/17 08/19/17 15:22 08:30 06:50 BUN 21 H D 22 H 27 H D Creatinine 1.9 H 2.2 H D 2.5 H 08/20/17 06:10 BUN 27 H Creatinine 2.5 H Constitutional: Calm ...Auscultate: Yes: Normoactive Bowel Sounds ...Palpate: Yes: Soft, Other (nontender) Labs: CBC, BMP 08/19/17 06:50 08/20/17 06:10 INR, PTT INR 1.08 (0.82-1.09) 08/16/17 15:22 Problem List - Problems (1) Intractable hiccups Assessment/Plan: Appear to be under control with thorazine 50mg TID. Will continue this dosage Code(s): R06.6 - HICCOUGH (2) Hiatal hernia with GERD Assessment/Plan: Heartburn controlled with the Ranitidine and Mylanta Code(s): K21.9 - GASTRO-ESOPHAGEAL REFLUX DISEASE WITHOUT ESOPHAGITIS; K44.9 - DIAPHRAGMATIC HERNIA WITHOUT OBSTRUCTION OR GANGRENE (3) Renal insufficiency Assessment/Plan: Suspectthat prerenal azotemia is superimposed on chronic renal disease. Will do 24 hour urine collection and request renal consultation. Code(s): N28.9 - DISORDER OF KIDNEY AND URETER, UNSPECIFIED
[2017-08-20 11:51] LABS: URINE APPEARANCE CLEAR; URINE BILIRUBIN NEGATIVE (NEGATIVE); URINE BLOOD 1+ (NEGATIVE); URINE COLOR STRAW; URINE GLUCOSE (UA) NEGATIVE (NEGATIVE); URINE KETONE NEGATIVE (NEGATIVE); URINE LEUK ESTERASE NEGATIVE (NEGATIVE); URINE NITRITE NEGATIVE (NEGATIVE); URINE PROTEIN NEGATIVE (NEGATIVE); URINE UROBILINOGEN NEGATIVE mg/dL (0.2-1.0)
[2017-08-20] MEDS: SODIUM CHLORIDE 1,000 ML IV SCH ×2 (12:32→15:32)
--- NOTE | 2017-08-20 13:45 | PATH ---
Surgical Pathology Report Patient Name: ANÍBAL DOYLE [facility]. Rec. #: [id number] /Age/Gender: 1960 (Age: 57) / M Account: [id number] Location: [facility] MED/SURG Taken: 08/17/2017 Received: 08/17/2017 Reported: 08/20/2017 Physicians: Judith Brandon M.D. Specimen(s) Received A: BX DUODENUM B: BX ANTRUM Clinical History Preoperative diagnosis: hiccups Postoperative diagnosis: Hiatal hernia, EG junction ulcer, GERD Final Diagnosis A. DUODENUM, SECOND PORTION AND BULB, BIOPSY: DUODENAL MUCOSA WITH MEGHAN'S GLAND HYPERPLASIA. B. STOMACH, ANTRUM, BIOPSY: GASTRIC ANTRAL MUCOSA WITH MILD CHRONIC GASTRITIS. IMMUNOHISTOCHEMICAL STAIN FOR H. PYLORI IS NEGATIVE. Electronically Signed Viola Reyes M.D. Gross Description A. Received in formalin, labeled "biopsy second portion of duodenum and duodenal bulb" are 5 carrasquillo, irregular portions of soft tissue ranging firm 0.2-0.3 cm. in greatest dimension. The specimens are submitted in toto in one cassette. B. Received in formalin, labeled "antrum" are 2 carrasquillo, irregular portions of soft tissue averaging 0.1 cm. in greatest dimension. The specimens are submitted in toto in one cassette. 08/17/2017 [facility]08/17/2017
--- NOTE | 2017-08-20 16:44 | CONSULT ---
Consultation: REQUESTING PROVIDER: Dr. Koch CONSULT REQUEST: We have been asked to medically evaluate this patient for AIDA HISTORY OF PRESENT ILLNESS: Patient is a 57 year old male with a PMHx of HTN, DJD, and gout who presented to the ED for persistent hiccups that started on 08/10/17. Patient came to [facility] emergency department and was given chlorpromazine, which resolved and discharged home. Patient followed up with GI for Reglan prescription but was unable to to fill it due to insurance coverage. Therefore, his hiccups continued and worsened. EGD was done and patient was found to have an ulcer. Patient throughout the hospital stay developed AIDA and was called to come evaluate patient. Otherwise, patient denies shortness of breath, dysuria, hematuria, frequency, urgency. PMHx: HTN , DJD, Gout PSHx: Right knee makoplasty, appendectomy. Social: smokes an occasional cigar, drinks 2 beers daily , no drugs, works as teacher. FHx: Mother(HTN) REVIEW OF SYSTEMS: CONSTITUTIONAL: Absent: fever, chills, diaphoresis, generalized weakness, malaise, loss of appetite, weight change HEENT: Absent: rhinorrhea, nasal congestion, throat pain, throat swelling, difficulty swallowing, mouth swelling, ear pain, eye pain, visual changes CARDIOVASCULAR: Absent: chest pain, syncope, palpitations, irregular heart rate, lightheadedness , peripheral edema RESPIRATORY: Absent: cough, shortness of breath, dyspnea with exertion, orthopnea, wheezing, stridor, hemoptysis GASTROINTESTINAL: Hiccups, abdominal distention Absent: abdominal pain, nausea, vomiting, diarrhea, constipation, melena, hematochezia GENITOURINARY: Absent: dysuria, frequency, urgency, hesitancy, hematuria, flank pain, genital pain MUSCULOSKELETAL: Absent: myalgia, arthralgia, joint swelling, back pain, neck pain SKIN: Absent: rash, itching, pallor HEMATOLOGIC/IMMUNOLOGIC: Absent: easy bleeding, easy bruising, lymphadenopathy, frequent infections ENDOCRINE: Absent: unexplained weight gain, unexplained weight loss, heat intolerance, cold intolerance NEUROLOGIC: Absent: headache, focal weakness or paresthesias, dizziness, unsteady gait, seizure, mental status changes, bladder or bowel incontinence PSYCHIATRIC: Absent: anxiety, depression, suicidal or homicidal ideation, hallucinations. PHYSICAL EXAMINATION Vital Signs - 24 hr 08/19/17 08/19/17 08/20/17 17:32 21:00 05:57 Temperature 98.5 F 98.4 F 97.9 F Pulse Rate 87 89 76 Respiratory 20 20 20 Rate Blood Pressure 129/73 113/71 124/65 O2 Sat by Pulse 99 Oximetry (%) 08/20/17 08/20/17 08:15 14:00 Temperature 98.1 F 98.0 F Pulse Rate 83 76 Respiratory 18 Rate Blood Pressure 127/73 118/67 O2 Sat by Pulse Oximetry (%) GENERAL: Awake, alert, and fully oriented, in no acute distress. EYES: Sclera anicteric, conjunctiva clear EARS, NOSE, THROAT: Moist mucous membranes. LUNGS: Breath sounds equal, clear to auscultation bilaterally. No wheezes, and no crackles. No accessory muscle use. HEART: Regular rate and rhythm, normal S1 and S2 without murmur, rub or gallop. ABDOMEN: Soft, nontender, not distended, normoactive bowel sounds, no guarding, no rebound, no masses. LOWER EXTREMITIES: 2+ pulses, warm, well-perfused. No calf tenderness. No peripheral edema. Laboratory Results - last 24 hr 08/20/17 08/20/17 06:10 11:35 Sodium 137 Potassium 3.9 Chloride 101 Carbon Dioxide 29 Anion Gap 7 L BUN 27 H Creatinine 2.5 H Random Glucose 85 Calcium 8.4 L Urine Color Straw Urine Appearance Clear Urine pH 6.0 Ur Specific [place] 1.006 Urine Protein Negative Urine Glucose (UA) Negative Urine Ketones Negative Urine Blood 1+ H Urine Nitrite Negative Urine Bilirubin Negative Urine Urobilinogen Negative Ur Leukocyte Esterase Negative Urine WBC (Auto) 2 Urine RBC (Auto) <1 Active Medications Generic Name Dose Route Start Last Admin Trade Name Freq PRN Reason Stop Dose Admin Al Hydroxide/Mg Hydroxide 30 ml 08/17/17 13:15 08/20/17 12:32 Mylanta Oral Suspension - PO 30 ml Q6HPO JENNIFER Administration Amlodipine Besylate 10 mg 08/16/17 15:15 08/20/17 09:49 Norvasc - PO 10 mg DAILY JENNIFER Administration Chlorpromazine HCl 50 mg 08/19/17 16:30 08/20/17 11:00 Thorazine - PO 50 mg TIDAC JENNIFER Administration Hydralazine HCl 25 mg 08/19/17 22:00 02/12/18 09:49 Apresoline - PO 25 mg BID JENNIFER Administration Sodium Chloride 1,000 mls @ 100 mls/hr 08/19/17 14:00 08/20/17 15:32 Normal Saline - IV Not Given ASDIR JENNIFER Ranitidine HCl 150 mg 08/19/17 22:00 08/20/17 09:49 Zantac - PO 150 mg BID JENNIFER Administration ASSESSMENT/PLAN: IMPRESSION 1. AIDA on CKD 2. HTN 3. PUD 4. INTRACTABLE HICCUPS 5. HIATAL HERNIA w/ GERD PLAN -AIDA likely prerenal with undiagnosed CKD. -Agree with IV Fluids NS @100mls/hr -Avoid Nephrotoxic medications. ARB and HCTZ held. PPI switched to ranitidine -Thorazine increased from 25 to 50mg TID -Renal U/S possible underlying chronic kidney disease. Will need to have renal workup as outpatient. Business card given to patient and advised to follow up within a week. Dispo: We will continue to follow the patient. Thank you for this consultative opportunity. Visit type - Emergency Visit Emergency Visit: Yes ED Registration Date: 08/16/17 Care time: The patient presented to the Emergency Department on the above date and was hospitalized for further evaluation of their emergent condition. - New Patient This patient is new to me today: Yes Date on this admission: 08/20/17 - Critical Care Critical Care patient: No
--- NOTE | 2017-08-20 17:33 | PN ---
Teaching Attending Note Name of Resident: Zayra Jama (Nephrology) ATTENDING PHYSICIAN STATEMENT I saw and evaluated the patient. I reviewed the resident's note and discussed the case with the resident. I agree with the resident's findings and plan as documented. Nephrology Consult Pt initially presents with intractable hiccups. He was taken for endoscopy and found to have a hiatal hernia. I was called to evaluate him for elevated creatinine. He does have history of CKD. He recently moved here from [place]. He has not seen a director marketing. He denies dysuria or hematuria. He denies shortness of breath or lower ext edema. He denies nsaid use. pmhx ckd htn gout allergies PCN family hx denies ros hiccups social hx denies Current Medications Generic Name Dose Route Start Last Admin Trade Name Freq PRN Reason Stop Dose Admin Al Hydroxide/Mg Hydroxide 30 ml 08/17/17 13:15 08/20/17 12:32 Mylanta Oral Suspension - PO 30 ml Q6HPO JENNIFER Administration Amlodipine Besylate 10 mg 08/16/17 15:15 08/20/17 09:49 Norvasc - PO 10 mg DAILY JENNIFER Administration Chlorpromazine HCl 50 mg 08/19/17 16:30 08/20/17 16:34 Thorazine - PO 50 mg TIDAC JENNIFER Administration Hydralazine HCl 25 mg 08/19/17 22:00 08/20/17 09:49 Apresoline - PO 25 mg BID JENNIFER Administration Sodium Chloride 1,000 mls @ 100 mls/hr 08/19/17 14:00 08/20/17 15:32 Normal Saline - IV Not Given ASDIR JENNIFER Ranitidine HCl 150 mg 08/19/17 22:00 08/20/17 09:49 Zantac - PO 150 mg BID JENNIFER Administration Last Vital Signs Temp Pulse Resp BP Pulse Ox 98.0 F 76 18 118/67 99 08/20/17 14:00 08/20/17 14:00 08/20/17 08:15 08/20/17 14:00 08/19/17 21:00 Current Active Problems HTN (hypertension) (Acute) Hiatal hernia with GERD (Acute) Intractable hiccups (Acute) Renal insufficiency (Acute) Laboratory Tests 02/21/16 08/12/17 08/16/17 09:00 13:45 15:22 Hgb Creatinine 2.0 H 2.1 H 1.9 H Urine Protein Urine Blood 08/18/17 08/19/17 08/19/17 08:30 06:50 06:50 Hgb 13.9 Creatinine 2.2 H D 2.5 H Urine Protein Urine Blood 08/20/17 08/20/17 06:10 11:35 Hgb Creatinine 2.5 H Urine Protein Negative Urine Blood 1+ H cardio s1s2 pulm clear GI soft ext neg edema neuro awake and alert skin neg rash Impression 1. CKD 2. HTN 3. PUD 4. gerd 5. hiatal hernia 6. intractable hiccups 7. renal cyst Plan - discussed labs with pt - will see pt in office for ckd workup - reviewed renal ultrasound - cyst will need follow up as well - avoid nsaids and nephrotoxins - will see pt in office Dr Lewis
--- NOTE | 2017-08-20 18:11 | PN ---
Teaching Attending Note Name of Resident: Yariel Patrick ATTENDING PHYSICIAN STATEMENT I saw and evaluated the patient. I reviewed the resident's note and discussed the case with the resident. I agree with the resident's findings and plan as documented. SUBJECTIVE: no fever or chills. no hiccups , no abd pain. OBJECTIVE: NAD, AAox3. MMM CV: RRR, no MRG , No JVD Lungs: CTAB skin: a scar over anterior chest wall Abd: soft, NL BS , NT. Ext: no edema , or erythema ASSESSMENT AND PLAN: 56 yr old gentleman with h/o HTN and CKD and recent admission for Hiccups who presented with continued intractable Hiccups. 1- Intractable Hiccups: improved - EGD with hiatal hernia and associated ulcer. - give thiorazine to 50 TID x 1 week after dc - cont ranitidine 2- HTN: cont norvasc hold Losartan due to AIDA . can be resumed when renal function is stable cont hydralazine in mean time 3-AIDA on CKD: cont to hold HCTZ a/ARB until renal function stabilize. appreciate renal Recs further w/u as out pt dc home f/u with renal , GI and PCP
[2017-08-20 18:29] VITALS: BP 126/72; PULSE 83; TEMP 97.9
--- NOTE | 2017-08-20 18:58 | DS ---
Physical Exam: SUBJECTIVE: Patient seen and examined at bedside. No hiccups overnight. Denies any current complaints. OBJECTIVE: Vital Signs Period Temp Pulse Resp BP Sys/Stokes Pulse Ox Last 24 Hr 97.9 F-98.4 F 76-89 18-20 113-127/65-73 99 PHYSICAL EXAM GENERAL: The patient is awake, alert, and fully oriented, in no acute distress. HEAD: Normal with no signs of trauma. EYES: extraocular movements intact, sclera anicteric, conjunctiva clear. No ptosis. ENT: Ears normal, nares patent, moist mucous membranes. NECK: Trachea midline, full range of motion. LUNGS: Breath sounds equal, clear to auscultation bilaterally, no wheezes, no crackles, no accessory muscle use. HEART: Regular rate and rhythm, S1, S2 without murmur, rub or gallop. ABDOMEN: Soft, nontender, nondistended, normoactive bowel sounds, no guarding, no rebound, no hepatosplenomegaly, no masses. EXTREMITIES: warm, well-perfused, no edema. NEUROLOGICAL: Cranial nerves II through XII grossly intact. Normal speech, gait not observed. PSYCH: Normal mood, normal affect. SKIN: Warm, dry LABS Laboratory Results - last 24 hr 08/20/17 08/20/17 06:10 11:35 Sodium 137 Potassium 3.9 Chloride 101 Carbon Dioxide 29 Anion Gap 7 L BUN 27 H Creatinine 2.5 H Random Glucose 85 Calcium 8.4 L Urine Color Straw Urine Appearance Clear Urine pH 6.0 Ur Specific [place] 1.006 Urine Protein Negative Urine Glucose (UA) Negative Urine Ketones Negative Urine Blood 1+ H Urine Nitrite Negative Urine Bilirubin Negative Urine Urobilinogen Negative Ur Leukocyte Esterase Negative Urine WBC (Auto) 2 Urine RBC (Auto) <1 IMAGING US Kidney: No hydronephrosis. Echogenic renal cortices suggest nonspecific medical-renal disease. A 4.0 x 3.8 cm simple appearing right renal cortical cyst. KUB: Nonspecific bowel gas pattern without small bowel dilatation or fluid levels. Paucity of gas in small bowel, left colon and rectum. Early obstruction cannot be excluded. Please correlate clinically and continued follow-up is suggested. HOSPITAL COURSE: Date of Admission:08/16/17 56 year old male with a hx of hypertension and CKD presented to the ED for intractable hiccups. He was admitted to observation several days ago for hiccups , for which he was given chlorpromazine and improved nearly immediately. He had a syncopal episode on his previous admission in the ED and was worked up with Echo(negative), carotid doppler (negative). Patient was discharged previously with instructions to see Dr. Sorensen. Dr. Sorensen prescribed him reglan, which he was unable to obtain due to insurance issues. Patient now returns after 1 day of severe hiccups which he describes as "rapid fire" and continuous last night. He states that eating makes them worse, and that the previous chlorpromazine made it better. Denies any chest pain, shortness of breath, nausea, vomiting, diarrhea, fevers, chills, melena, hematochezia, abdominal pain. Patient was admitted for the treatment of intractable hiccups. He was given chlorpromazine in the ED and it alleviated the hiccups, but they returned after several hours of not being on the medication. Patient also was found to have a chronic kidney disease with an elevated creatinine. Renal ultrasound was done that revealed medical renal disease and no hydronephrosis + R renal cyst. Patient had EGD the next day with Dr. Sorensen, which revealed hiatal hernia and ulcer on the hernia. Patient was given thorazine three times a day and PPI drip. PPI was changed to ranitidine, and mag/al hydroxide. Patient was discharged after not having any hiccup episodes for several hours with followup to GI and nephrology for chronic kidney disease. Date of Discharge: 08/20/17 Minutes to complete discharge: 35 Discharge Summary Reason For Visit: HICCUPS Current Active Problems HTN (hypertension) (Acute) Hiatal hernia with GERD (Acute) Intractable hiccups (Acute) Renal insufficiency (Acute) Condition: Improved - Instructions Diet, Activity, Other Instructions: You were admitted to the hospital for the treatment of intractable hiccups. We discovered on endoscopy that you have a hiatal hernia and an ulcer on that hernia, which could be the cause of your hiccups. We placed you on medications listed below that will help prevent future episodes of hiccups. We also found you had worsened kidney function in the hospital - this has been stable but needs to be followed by a kidney specialist (nutrition instructor) as an outpatient. Medical Recommendations: For Hiccups -Continue taking thorazine 50mg three times a day for hiccups -Continue taking Ranitidine 150mg twice a day -Continue taking magnesium/aluminum hydroxide four times a day For Blood Pressure -Continue amlodipine 10mg once a day -continue hydralazine 25mg twice a day ( new medication for th eblood pressure , until valsartan is resumed ) -we stopped your valsartan /hydrochlorothiazide because of your kidney function. Please have this addressed with your primary care physician and the nutrition instructor Referrals: -Make an appointment with your primary care physician within 1 week of discharge , if you don't have one, follow with our medical group at: [address], [address] [place] [address] -Make an appointment with your nutrition instructor Dr. Lewis within 1 week of discharge -Make an appointment with the box stacker Dr. Sorensen within 1 week of discharge If you experience fevers, chills, severe chest pain or shortness of breath, please return to the emergency room immediately. Referrals: New Wilkes MD [Staff Physician] - 1 Week Susana Sorensen MD [Staff Physician] - 1 Week Patricia Lewis MD [Staff Physician] - 1 Week Disposition: HOME - Home Medications Comprehensive Discharge Medication List: Ambulatory Orders Amlodipine Besylate [Norvasc -] 10 mg PO DAILY 03/07/16 Chlorpromazine [Thorazine -] 50 mg PO TIDAC #21 tablet 08/20/17 Mag Hydrox/Al Hydrox/Simeth [Mylanta Oral Suspension -] 30 ml PO Q6HPO #30 cup 08/20/17 Ranitidine HCl 150 mg PO BID #60 tablet 08/20/17 hydrALAZINE HCL [Apresoline -] 25 mg PO BID #60 tablet 08/20/17 This patient is new to me today: No Emergency Visit: No Critical Care patient: No - Discharge Referral Referred to [facility] No
== END 2017-08-20 19:18 | disposition home or self-care (01) | DRG 204 ==
LOC: JER 05:51 → JERBED 14:22 → OBSVTOIN 17:19 → J8W 19:31
PROVIDERS: ADMIT Internal Medicine; ATTEND Internal Medicine
PROC: 0DD68ZX Extraction of Stomach, Via Natural or Artificial Opening Endoscopic, Diagnostic (ICD-10-PCS; 2017-08-17)
PROC: 0DD98ZX Extraction of Duodenum, Via Natural or Artificial Opening Endoscopic, Diagnostic (ICD-10-PCS; principal; 2017-08-17 12:15)
DX: R06.6 Hiccough (principal); N17.9 Acute kidney failure, unspecified; K22.10 Ulcer of esophagus without bleeding; K27.9 Peptic ulcer, site unspecified, unspecified as acute or chronic, without hemorrhage or perforation; R55 Syncope and collapse; F17.200 Nicotine dependence, unspecified, uncomplicated; K44.9 Diaphragmatic hernia without obstruction or gangrene; I12.9 Hypertensive chronic kidney disease with stage 1 through stage 4 chronic kidney disease, or unspecified chronic kidney disease; N18.9 Chronic kidney disease, unspecified; N28.1 Cyst of kidney, acquired; K21.0 Gastro-esophageal reflux disease with esophagitis; Z88.0 Allergy status to penicillin
CPT/HCPCS: 36415; 74018-TC-FY; 76775-TC; 80048; 80053; 81003; 81015; 82040; 85025; 85027; 85610; 86850; 86900; 86901; 88305-TC; 88342-TC; 99283-25; G0378; J1644

== ENCOUNTER 2023-01-02 08:18 | Day surgery (SDC) | payer BC, OTHER ==
[2023-01-01 11:43] VITALS: BMI 31.7
[2023-01-02] MEDS ORDERED: CELECOXIB 200 MG CAPSULE ONE (09:14)
[2023-01-02] MEDS ORDERED: GABAPENTIN 300 MG CAPSULE PO ONE (11:00)
[2023-01-02] MEDS ORDERED: CELECOXIB 200 MG CAPSULE PO ONE (11:00)
[2023-01-02] MEDS ORDERED: CEFAZOLIN 2 GM in DEXTROSE 5%-WATER - 50 ML IVPB ONE (11:00)
[2023-01-02] MEDS ORDERED: ceFAZolin SODIUM 1 GM VIAL ONE (11:25)
[2023-01-02] MEDS ORDERED: VANCOMYCIN 1,000 MG VIAL (RESTRICTED TO ID ONLY) ONE (11:25)
[2023-01-02] MEDS ORDERED: MIDAZOLAM HCL 2 MG/2 ML SINGLE DOSE VIAL ONE ×2 (11:31→14:27)
[2023-01-02] MEDS ORDERED: FENTANYL CITRATE/PF 50 MCG/ML VIAL ONE (11:31)
[2023-01-02] MEDS ORDERED: BUPIVACAINE LIPOSOME/PF (EXPAREL) 266 MG/20 ML VIAL ONE (11:31)
[2023-01-02] MEDS ORDERED: BUPIVACAINE HCL/PF 0.5% (5MG/ML) 10 ML VIAL ONE (11:32)
[2023-01-02] MEDS ORDERED: TRANEXAMIC ACID 1000 MG/10 ML VIAL IVPUSH ONE (12:00)
[2023-01-02] MEDS ORDERED: THROMBIN (BOVINE) 5,000 UNIT VIAL TP ONE (13:04)
[2023-01-02] MEDS ORDERED: ONDANSETRON 4 MG/2 ML VIAL IVPUSH PRN (14:36)
[2023-01-02] MEDS ORDERED: LACTATED RINGERS SOLUTION 1,000 ML IV SCH ×2 (14:45→15:45)
[2023-01-02] MEDS: ACETAMINOPHEN 500 MG TABLET (FP) PO SCH ×2 (15:15→21:02)
[2023-01-02] MEDS ORDERED: ACETAMINOPHEN INJECTION 100 ML IVPB ONE (15:19)
[2023-01-02] MEDS ORDERED: ACETAMINOPHEN 1000 MG/100 ML BAG IVPB ONE (15:40)
[2023-01-02] MEDS ORDERED: oxyCODONE HCL 5 MG TABLET PO PRN ×2 (15:40)
[2023-01-02] MEDS: CEFAZOLIN SODIUM 2 GM in DEXTROSE 5%-WATER 100 ML IVPB SCH (21:01)
[2023-01-02] MEDS: oxyCODONE HCL 10 MG SUSTAINED ACTING TABLET PO SCH (21:02)
[2023-01-02] MEDS: SENNOSIDES/DOCUSATE COMBO (SENNA PLUS) TABLET (UD) PO SCH (21:03)
[2023-01-03 01:03] VITALS: RESP 18
[2023-01-03] MEDS: CEFAZOLIN SODIUM 2 GM in DEXTROSE 5%-WATER 100 ML IVPB SCH (06:08)
[2023-01-03] MEDS: ACETAMINOPHEN 500 MG TABLET (FP) PO SCH ×2 (06:09→09:04)
[2023-01-03] MEDS ORDERED: ASPIRIN 325 MG TABLET PO SCH (08:00)
[2023-01-03 08:08] LABS: HEMATOCRIT 37.2 % (35.4-49); MCH 27.2 pg (25.7-33.7); MCHC 32.3 g/dl (32.0-35.9); MEAN CELL VOLUME 84.2 fl (80-96); MEAN PLT VOLUME 9.3 fl (7.5-11.1); PLATELET COUNT 179.5 10^3/uL (134-434); RBC 4.42 10^6/uL (4.00-5.60); RDW 15.8 % (11.9-15.9); WHITE BLOOD COUNT 8.6 10^3/uL (4.0-10.8)
[2023-01-03] MEDS: SENNOSIDES/DOCUSATE COMBO (SENNA PLUS) TABLET (UD) PO SCH (09:04)
[2023-01-03] MEDS: oxyCODONE HCL 10 MG SUSTAINED ACTING TABLET PO SCH ×2 (09:09→11:33)
[2023-01-03] MEDS ORDERED: MULTIVITAMINS (DAILY MVI) TABLET (FP) PO SCH (10:00)
[2023-01-03] MEDS ORDERED: LOSARTAN POTASSIUM 50 MG TABLET PO SCH (10:00)
[2023-01-03] MEDS ORDERED: PANTOPRAZOLE 40 MG TABLET PO SCH (10:00)
[2023-01-03] MEDS ORDERED: amLODIPine BESYLATE 10 MG TABLET (FP) PO SCH (10:00)
[2023-01-03 14:22] VITALS: BP 136/71; PULSE 68; TEMP 98.3
== END 2023-01-03 16:16 | disposition home health service (06) ==
LOC: FASUSAT 08:18 → FM/S 16:36 → FASUSAT 01-03 16:16
PROVIDERS: ATTEND Orthopaedic Surgery
PROC: 8E0Y0CZ Robotic Assisted Procedure of Lower Extremity, Open Approach (ICD-10-PCS; 2023-01-02)
PROC: 0SRD0JA Replacement of Left Knee Joint with Synthetic Substitute, Uncemented, Open Approach (ICD-10-PCS; principal; 2023-01-02 12:50)
DX: M17.12 Unilateral primary osteoarthritis, left knee (principal)
CPT/HCPCS: 20985; 27447; C1776; S2900; 36415; 73560-TC-LT-FY; 85027; 93005; 93010; 94760; 97010-GP; 97116-GP; 97162-GP; C1713

== ENCOUNTER 2023-02-27 06:03 | Day surgery (SDC) | payer BC, OTHER ==
[2023-02-23 15:31] VITALS: BMI 31.5
[2023-02-27] MEDS ORDERED: SUCCINYLCHOLINE CHLORIDE 200 MG/10 ML SYRINGE ONE (08:05)
[2023-02-27] MEDS ORDERED: PROPOFOL 20 ML ONE (08:05)
[2023-02-27] MEDS ORDERED: KETOROLAC TROMETHAMINE 30 MG/1 ML VIAL ONE (08:09)
[2023-02-27] MEDS ORDERED: ONDANSETRON 4 MG/2 ML VIAL ONE (08:09)
[2023-02-27] MEDS ORDERED: ONDANSETRON 4 MG/2 ML VIAL IVPUSH PRN (08:49)
[2023-02-27] MEDS ORDERED: FENTANYL CITRATE/PF 50 MCG/ML VIAL ONE (08:49)
[2023-02-27] MEDS ORDERED: oxyCODONE HCL 5 MG TABLET PO PRN (08:49)
[2023-02-27 09:19] VITALS: RESP 18; TEMP 97.4
[2023-02-27 09:41] VITALS: BP 154/87; PULSE 58
== END 2023-02-27 10:40 | disposition home or self-care (01) ==
LOC: FASU 06:03
PROVIDERS: ATTEND Orthopaedic Surgery
PROC: 0SSDXZZ Reposition Left Knee Joint, External Approach (ICD-10-PCS; principal; 2023-02-27 08:12)
DX: M25.662 Stiffness of left knee, not elsewhere classified (principal); Z96.652 Presence of left artificial knee joint
CPT/HCPCS: 94760